=== PATIENT | female | born 1955 | race Caucasian/White ===

== ENCOUNTER 2017-07-23 22:44 | Observation (INO) | payer OTHER ==
[2017-07-23] MEDS ORDERED: MORPHINE SULFATE 4 MG INJ IV ONE (23:10)
[2017-07-23] MEDS ORDERED: Zofran 4 MG/2 ML VIAL IV ONE (23:10)
--- NOTE | 2017-07-23 23:15 | ERPHSYRPT ---
- History of Present Illness Time Seen by Provider: 07/23/17 23:12 Source: patient Physician History: 62-year-old white female arrives with complaint of sharp pain which is inferior to her left breast symptoms since last night patient states the pain is sharp worse with breathing. Patient has no nausea no vomiting no diarrhea. Past medical history patient denies she does state that she was told about a year ago by a doctor that her blood pressure was high but never followed up. Past surgical history includes hysterectomy Timing/Duration: yesterday Severity: moderate Modifying Factors: Improves With: other Associated Symptoms: chest pain, No nausea, No vomiting, No abdominal pain, No shortness of breath, No heartburn, No diaphoresis, No cough, No chills, No fever , No headaches, No loss of appetite, No malaise, No rash, No syncope, No seizure , No weakness Allergies/Adverse Reactions: No Known Drug Allergies Allergy (Verified 07/23/17 23:22) Home Medications: No Reportable Medications [No Reported Medications] 07/23/17 [History] - Review of Systems Constitutional: No Fever, No Chills Eyes: No Symptoms Ears, Nose, & Throat: No Symptoms Respiratory: No Cough, No Dyspnea Cardiac: Chest Pain (pain inferior to left breast sharp worse with breathing), No Edema, No Syncope Abdominal/Gastrointestinal: No Abdominal Pain, No Nausea, No Vomiting, No Diarrhea Genitourinary Symptoms: No Dysuria Musculoskeletal: No Back Pain, No Neck Pain Skin: No Rash Neurological: No Dizziness, No Focal Weakness, No Sensory Changes Psychological: No Symptoms Endocrine: No Symptoms All Other Systems: Reviewed and Negative - Past Surgical History Female Surgical History: Hysterectomy - Nursing Vital Signs Nursing Vital Signs: Initial Vital Signs Temperature 97.9 F 07/23/17 22:56 Pulse Rate 79 07/23/17 22:56 Blood Pressure 244/110 07/23/17 22:56 O2 Sat by Pulse Oximetry 99 07/23/17 22:56 Pain Scale Pain Intensity 0 - Physical Exam General Appearance: no apparent distress, alert Eye Exam: PERRL/EOMI, eyes nml inspection Ears, Nose, Throat Exam: normal ENT inspection, TMs normal, pharynx normal, moist mucous membranes Neck Exam: normal inspection, non-tender, supple, full range of motion Respiratory Exam: normal breath sounds, lungs clear, No respiratory distress Cardiovascular Exam: regular rate/rhythm, normal heart sounds, normal peripheral pulses Gastrointestinal/Abdomen Exam: soft, normal bowel sounds, No tenderness, No mass Back Exam: normal inspection, normal range of motion, No CVA tenderness, No vertebral tenderness Extremity Exam: normal inspection, normal range of motion, pelvis stable Neurologic Exam: alert, oriented x 3, cooperative, normal mood/affect, nml cerebellar function, nml station & gait, sensation nml, No motor deficits Skin Exam: normal color, warm, dry, No rash Lymphatic Exam: No adenopathy SpO2 Interpretation: normal - Course Nursing assessment & vital signs reviewed: Yes EKG Interpreted by Me: RATE (72 bpm), Other (EKG: Sinus rhythm, normal axis LXXII bpm left ventricular hypertrophy no acute ST or T wave changes noted) - Radiology Exams Chest X-ray Interpretation: Interpreted by me, Other (no acute disease process) - CT Exams Chest CT Interpretation: Tele-radiologist Report, Other (CTA chest: Impression 1. Tiny pulmonary embolism versus less likely artifact identified and a pulmonary arterial branch to the inferior left upper lobe. Suggest DVT ultrasound to assess clot burden. 2. Left pleural effusion with associated atelectasis) Ordered Tests: Active Orders 24 hr Category Date Time Status EKG-ER Only STAT Care 07/23/17 23:10 Active IV Insertion STAT Care 07/23/17 23:10 Active CHEST 1 VIEW (PORTABLE) Stat Exams 07/23/17 23:10 Taken CHEST WITH CONTRAST [CT] Stat Exams 07/24/17 00:03 Taken AMYLASE Stat Lab 07/23/17 23:15 Completed CBC W DIFF Stat Lab 07/23/17 23:15 Completed CMP Stat Lab 07/23/17 23:15 Completed D-DIMER QUANTITATION Stat Lab 07/23/17 23:15 Completed LIPASE Stat Lab 07/23/17 23:15 Completed PROTIME WITH INR Stat Lab 07/23/17 23:15 Completed PTT Stat Lab 07/23/17 23:15 Completed TROPONIN Q3H Lab 07/23/17 23:15 Completed TROPONIN Q3H Lab 07/24/17 02:45 Completed TROPONIN Q3H Lab 07/24/17 05:15 Ordered TROPONIN Q3H Lab 07/24/17 08:15 Ordered TROPONIN Q3H Lab 07/24/17 11:15 Ordered UA W/RFX UR CULTURE Stat Lab 07/23/17 22:55 Completed Medication Summary Generic Name Dose Route Start Last Admin Trade Name Shekharq PRN Reason Stop Dose Admin Enoxaparin Sodium 60 mg 07/24/17 03:30 07/24/17 03:34 Enoxaparin Sodium 1 mg/kg (60 mg) 08/23/17 03:29 60 mg SQ Administration Q12H JOSE Sodium Chloride 1,000 mls @ 50 mls/hr 07/23/17 23:45 07/23/17 23:54 Sodium Chloride 0.9% 1000 Ml IV 08/22/17 23:44 50 mls/hr .Q20H JOSE Administration Labetalol HCl 200 mg/ Sodium 190 mls @ 28.5 mls/hr 07/24/17 03:29 07/24/17 03 :34 Chloride IV 08/23/17 03:28 0.5 mg/min .Q6H40M PRN 28.5 mls/hr HYPERTENSION Administration 0.5 MG/MIN Discontinued Medications Generic Name Dose Route Start Last Admin Trade Name Joan PRN Reason Stop Dose Admin Aspirin 324 mg 07/24/17 00:02 07/24/17 00:09 Baby Aspirin 81 Mg Chew PO 07/24/17 00:03 324 mg STAT ONE Administration Labetalol HCl 10 mg 07/23/17 23:45 07/24/17 00:37 Trandate 20 Mg/5 Ml Syringe IV 07/23/17 23:46 10 mg STAT ONE Administration Labetalol HCl Confirm 07/23/17 23:49 Trandate 20 Mg/5 Ml Syringe Administered 07/23/17 23:50 Dose 20 mg IV .STK-MED ONE Labetalol HCl Confirm 07/24/17 00:36 Trandate 20 Mg/5 Ml Syringe Administered 07/24/17 00:37 Dose 20 mg IV .STK-MED ONE Labetalol HCl 10 mg 07/24/17 01:59 07/24/17 02:14 Trandate 20 Mg/5 Ml Syringe IV 07/24/17 02:00 10 mg STAT ONE Administration Labetalol HCl 10 mg 07/24/17 02:36 07/24/17 02:39 Trandate 20 Mg/5 Ml Syringe IV 07/24/17 02:37 10 mg STAT ONE Administration Labetalol HCl Confirm 07/24/17 02:38 Trandate 20 Mg/5 Ml Syringe Administered 07/24/17 02:39 Dose 20 mg IV .STK-MED ONE Morphine Sulfate 4 mg 07/23/17 23:10 07/23/17 23:30 Morphine Sulfate 4 Mg Inj IV 07/23/17 23:11 4 mg STAT ONE Administration Morphine Sulfate Confirm 07/23/17 23:29 Morphine Sulfate 4 Mg Inj Administered 07/23/17 23:30 Dose 4 mg .ROUTE .STK-MED ONE Ondansetron HCl 4 mg 07/23/17 23:10 07/23/17 23:31 Zofran 4 Mg/2 Ml Vial IV 07/23/17 23:11 4 mg STAT ONE Administration Ondansetron HCl Confirm 07/23/17 23:29 Zofran 4 Mg/2 Ml Vial Administered 07/23/17 23:30 Dose 4 mg .ROUTE .STK-MED ONE Lab/Rad Data: Laboratory Result Diagrams 07/23/17 23:15 07/23/17 23:15 Laboratory Results 07/24/17 07/23/17 07/23/17 Range/Units 02:45 23:15 23:15 WBC (4.0-10.5) K/mm3 RBC (4.1-5.4) M/mm3 Hgb (12.0-16.0) gm/dl Hct (35-47) % MCV (78-100) fl MCH (26-32) pg MCHC (32-36) g/dl RDW (11.5-14.0) % Plt Count (150-450) K/mm3 MPV (6-9.5) fl Gran % (36.0-66.0) % Eos # (Auto) (0-0.5) Lymphocytes % (24.0-44.0) % Monocytes % (0.0-12.0) % Eosinophils % (0.00-5.0) % Basophils % (0.0-0.4) % Absolute Granulocytes (1.4-6.9) Basophils # (0-0.4) INR 0.97 (0.8-3.0) APTT 26.9 (25.3-37.0) SECONDS D-Dimer 1032.60 H* (215-500) ng/mL Sodium (137-145) mmol/L Potassium (3.5-5.1) mmol/L Chloride (98-107) mmol/L Carbon Dioxide (22-30) mmol/L Anion Gap (5-15) MEQ/L BUN (7-17) mg/dL Creatinine (0.52-1.04) mg/dL Estimated GFR ML/MIN Glucose (74-106) mg/dL Calcium (8.4-10.2) mg/dL Total Bilirubin (0.2-1.3) mg/dL AST (14-36) U/L ALT (0-35) U/L Alkaline Phosphatase (38-126) U/L Troponin I < 0.012 < 0.012 (0.000-0.034) ng/mL Serum Total Protein (6.3-8.2) g/dL Albumin (3.5-5.0) g/dL Amylase (30-110) U/L Lipase (23-300) U/L Ur Collection Type Urine Color (YELLOW) Urine Appearance (CLEAR) Urine pH (5-6) Ur Specific [place] (1.005-1.025) Urine Protein (Negative) Urine Ketones (NEGATIVE) Urine Blood (0-5) Renaldo/ul Urine Nitrite (NEGATIVE) Urine Bilirubin (NEGATIVE) Urine Urobilinogen (0-1) mg/dL Ur Leukocyte Esterase (NEGATIVE) Urine Culture Reflexed (NO) Urine Glucose (NEGATIVE) mg/dL Specimen Received 07/23/17 07/23/17 07/23/17 Range/Units 23:15 23:15 22:55 WBC 7.7 (4.0-10.5) K/mm3 RBC 4.70 (4.1-5.4) M/mm3 Hgb 15.4 (12.0-16.0) gm/dl Hct 44.8 (35-47) % MCV 95.3 (78-100) fl MCH 32.8 H (26-32) pg MCHC 34.4 (32-36) g/dl RDW 13.0 (11.5-14.0) % Plt Count 174 (150-450) K/mm3 MPV 10.6 H (6-9.5) fl Gran % 55.0 (36.0-66.0) % Eos # (Auto) 0.15 (0-0.5) Lymphocytes % 32.2 (24.0-44.0) % Monocytes % 10.6 (0.0-12.0) % Eosinophils % 1.9 (0.00-5.0) % Basophils % 0.3 (0.0-0.4) % Absolute Granulocytes 4.24 (1.4-6.9) Basophils # 0.02 (0-0.4) INR (0.8-3.0) APTT (25.3-37.0) SECONDS D-Dimer (215-500) ng/mL Sodium 141 (137-145) mmol/L Potassium 3.5 (3.5-5.1) mmol/L Chloride 104 (98-107) mmol/L Carbon Dioxide 23 (22-30) mmol/L Anion Gap 17.2 H (5-15) MEQ/L BUN 10 (7-17) mg/dL Creatinine 0.73 (0.52-1.04) mg/dL Estimated GFR > 60 ML/MIN Glucose 100 (74-106) mg/dL Calcium 9.8 (8.4-10.2) mg/dL Total Bilirubin 1.10 (0.2-1.3) mg/dL AST 24 (14-36) U/L ALT 15 (0-35) U/L Alkaline Phosphatase 93 (38-126) U/L Troponin I (0.000-0.034) ng/mL Serum Total Protein 8.5 H (6.3-8.2) g/dL Albumin 4.7 (3.5-5.0) g/dL Amylase 69 (30-110) U/L Lipase 130 (23-300) U/L Ur Collection Type CLEAN CATCH Urine Color YELLOW (YELLOW) Urine Appearance CLEAR (CLEAR) Urine pH 5.0 (5-6) Ur Specific [place] 1.005 (1.005-1.025) Urine Protein NEGATIVE (Negative) Urine Ketones NEGATIVE (NEGATIVE) Urine Blood NEGATIVE (0-5) Renaldo/ul Urine Nitrite NEGATIVE (NEGATIVE) Urine Bilirubin NEGATIVE (NEGATIVE) Urine Urobilinogen NORMAL (0-1) mg/dL Ur Leukocyte Esterase NEGATIVE (NEGATIVE) Urine Culture Reflexed NO (NO) Urine Glucose NEGATIVE (NEGATIVE) mg/dL Specimen Received 07/23/17 1085 - Progress Progress: improved Progress Note: 07/23/17 23:47 Patient arrives with complaint of pain in her left chest inferior to her left breast sharp worse with breathing symptoms since last night. Patient with markedly elevated blood pressure. Patient did have a markedly elevated blood pressure of 238/96 and actually consideration was given to giving the patient labetalol 10 mg IV however patient with good response to her blood pressure with morphine 4 mg IV . patient was elevated d-dimer CT a of the chest is ordered. 07/24/17 02:47 patient's blood patient's blood pressure has a elevated and she has been given labetalol 10 mg increments for a total of 30 mg. Have ordered labetalol drip 0.5 mg/m to titrate to keep systolic blood pressure less than 190 systolic blood pressure less than 100. Patient does have a pulmonary embolism which is described as a tiny pulmonary embolism versus less likely artifact identified in the pulmonary arterial branch to the inferior left upper lobe Plan 1. Labetalol drip 2. Lovenox Call has been placed to Dr. Elizalde for possible admission 07/24/17 03:45 Patient's blood pressure is better with labetalol drip. Patient has been started on Lovenox. I've discussed the case with Dr. Elizalde will place patient on ICU ,continue labetalol drip, continue Lovenox provide morphine for pain . - Departure Time of Disposition: 03:46 Departure Disposition: In-patient Admission Clinical Impression: Hypertensive urgency Chest pain Qualifiers: Chest pain type: unspecified Qualified Code(s): R07.9 - Chest pain, unspecified Pulmonary embolism Qualifiers: Pulmonary embolism type: other Chronicity: acute Acute cor pulmonale presence: without acute cor pulmonale Qualified Code(s): I26.99 - Other pulmonary embolism without acute cor pulmonale Condition: Fair Critical Care Time: No Referrals: PASHA ELIZALDE MD [Primary Care Provider] -
[2017-07-23 23:22] LABS: BASOPHIL % 0.3 % (0.0-0.4); Basophil (Absolute #) 0.02 (0-0.4); Eosinophil % 1.9 % (0.00-5.0); Eosinophil (Absolute #) 0.15 (0-0.5); Granulocyte Absolute (ANC) 4.24 (1.4-6.9); Hematocrit 44.8 % (35-47); Hemoglobin 15.4 gm/dl (12.0-16.0); Lymphocyte (Absolute #) 2.48 (1.0-4.6); Lymphocytes % 32.2 % (24.0-44.0); Mean Cell Volume 95.3 fl (78-100); Mean Corpuscular Hemoglobin 32.8 pg (26-32); Mean Corpuscular Hgb Concent. 34.4 g/dl (32-36); Mean Platelet Volume 10.6 fl (6-9.5); Monocyte (Absolute #) 0.82 (0.0-1.3); Monocytes % 10.6 % (0.0-12.0); Platelet Count 174 K/mm3 (150-450); White Blood Count 7.7 K/mm3 (4.0-10.5)
[2017-07-23] MEDS ORDERED: MORPHINE SULFATE 4 MG INJ ONE (23:29)
[2017-07-23] MEDS ORDERED: Zofran 4 MG/2 ML VIAL ONE (23:29)
[2017-07-23 23:40] LABS: Appearance CLEAR (CLEAR); Bilirubin NEGATIVE (NEGATIVE); Blood NEGATIVE Ery/ul (0-5); Glucose NEGATIVE (NEGATIVE); Ketones NEGATIVE (NEGATIVE); Leukocyte Esterase NEGATIVE (NEGATIVE); Nitrite NEGATIVE (NEGATIVE); Protein,Urine Dip NEGATIVE (Negative); Specific Gravity 1.005 (1.005-1.025); Urobilinogen NORMAL mg/dL (0-1)
[2017-07-23] MEDS ORDERED: Sodium Chloride 0.9% 1000 ML 1,000 ML IV SCH (23:45)
[2017-07-23 23:48] LABS: INR 0.97 (0.8-3.0)
[2017-07-23] MEDS ORDERED: TRANDATE 20 MG/5 ML SYRINGE IV ONE (23:49)
[2017-07-23] MEDS ORDERED: Sodium Chloride 0.9% 1000 ML 1,000 ML ONE (23:49)
[2017-07-23 23:51] LABS: PTT 26.9 SECONDS (25.3-37.0)
[2017-07-23 23:53] LABS: ALBUMIN 4.7 g/dL (3.5-5.0); ALKALINE PHOSPHATASE 93 U/L (38-126); AMYLASE 69 U/L (30-110); ANION GAP 17.2 MEQ/L (5-15); BLOOD UREA NITROGEN 10 mg/dL (7-17); CHLORIDE 104 mmol/L (98-107); Calcium 9.8 mg/dL (8.4-10.2); Carbon Dioxide 23 mmol/L (22-30); Creatinine 1 0.73 mg/dL (0.52-1.04); Glucose 100 mg/dL (74-106); LIPASE 130 U/L (23-300); Potassium 3.5 mmol/L (3.5-5.1); SGOT/AST 24 U/L (14-36); SGPT/ALT 15 U/L (0-35); SODIUM 141 mmol/L (137-145); Total Protein 8.5 g/dL (6.3-8.2)
[2017-07-23 23:57] LABS: D-DIMER QUANTITATION 1032.6 ng/mL (215-500)
[2017-07-23] MEDS: TRANDATE 20 MG/5 ML SYRINGE IV ONE (23:58)
[2017-07-24] MEDS ORDERED: BABY ASPIRIN 81 MG CHEW PO ONE (00:02)
[2017-07-24] MEDS ORDERED: TRANDATE 20 MG/5 ML SYRINGE IV ONE ×4 (00:36→02:38)
[2017-07-24] MEDS: TRANDATE 20 MG/5 ML SYRINGE IV ONE (00:37)
[2017-07-24] MEDS ORDERED: TRANDATE 100 MG/20 ML MDV FOR DRIP*** 200 MG in Sodium Chloride 0.9% 150 ML 150 ML IV PRN (03:29)
[2017-07-24] MEDS ORDERED: ENOXAPARIN SODIUM SQ SCH ×3 (03:30→18:00)
[2017-07-24] MEDS ORDERED: ENOXAPARIN SODIUM SQ ONE (03:33)
[2017-07-24] MEDS ORDERED: Zofran 4 MG/2 ML VIAL IV PRN (04:15)
[2017-07-24] MEDS ORDERED: Sodium Chloride 0.9% 1000 ML 1,000 ML IV SCH (04:15)
[2017-07-24] MEDS ORDERED: MORPHINE SULFATE 4 MG INJ IV PRN (04:15)
--- NOTE | 2017-07-24 09:33 | XRAY ---
Indication: Chest pain. Elevated d-dimer. Multiple contiguous axial images obtained through the chest using 80 cc Isovue 370 contrast and PE protocol. Comparison: None There is good opacification of the pulmonary arteries to include the lobar and segmental branches. There is nonoccluding pulmonary embolus in the lingular branch. No other filling defect or pulmonary embolus. Heart is not enlarged. Aorta is normal in course and caliber. No pathologic mediastinal/hilar lymphadenopathy. Small hiatal hernia. Examination of the lung parenchyma demonstrates patchy left lower lobe and lingular airspace disease with lesser degree in the right lower lobe. Small left effusion. Right lower lobe calcified granuloma. Bony thorax intact with mild degenerative changes throughout the spine. Limited upper abdomen demonstrates fatty liver and calcified splenic granulomas. Impression: 1. Nonoccluding lingular pulmonary embolus. No distal pulmonary infarct. 2. Bilateral lower lobe and lingular airspace disease with small left effusion. 3. Incidental small hiatal hernia and evidence for old granulomatous disease. Comment: Preliminary interpretation was made by VR. No discrepancy. CT DI 10.00
--- NOTE | 2017-07-24 09:35 | XRAY ---
Indication: Left-sided chest pain. Comparison: None Portable chest demonstrates left base infiltrate/atelectasis/effusion and right mid lung calcified granuloma. Remaining lungs clear. Heart is not enlarged. Bony thorax intact with minimal scoliosis.
[2017-07-24] MEDS ORDERED: NORVASC 5 MG PO SCH (10:00)
[2017-07-24] MEDS ORDERED: Zestril 10 MG PO SCH (10:00)
[2017-07-24] MEDS ORDERED: ECOTRIN 81 MG PO SCH (10:00)
[2017-07-24 11:31] VITALS: BP 164/75; O2SAT 95
[2017-07-24 12:03] VITALS: PULSE 69
--- NOTE | 2017-07-24 13:10 | PCM.SSS ---
History of Present Illness - Chief Complaint Chief Complaint: Chest pain, HTN,PE History of Present Illness: is a 62 year old female.62-year-old white female arrives with complaint of sharp pain which is inferior to her left breast symptoms since last night patient states the pain is sharp worse with breathing. Patient has no nausea no vomiting no diarrhea. Past medical history patient denies she does state that she was told about a year ago by a doctor that her blood pressure was high but never followed up. Timing/Duration: yesterday Severity: moderate Modifying Factors: Improves With: other Associated Symptoms: chest pain, No nausea, No vomiting, No abdominal pain, No shortness of breath, No heartburn, No diaphoresis, No cough, No chills, No fever , No headaches, No loss of appetite, No malaise, No rash, No syncope, No seizure , No weakness - Review of Systems Constitutional: No Fever, No Chills Eyes: No Symptoms Ears, Nose, & Throat: No Symptoms Respiratory: No Cough, No Short Of Breath Cardiac: No Chest Pain, No Edema, No Syncope Abdominal/Gastrointestinal: No Abdominal Pain, No Nausea, No Vomiting, No Diarrhea Genitourinary Symptoms: No Dysuria Musculoskeletal: No Back Pain, No Neck Pain Skin: No Rash Neurological: No Dizziness, No Focal Weakness, No Sensory Changes Psychological: No Symptoms Endocrine: No Symptoms Hematologic/Lymphatic: No Symptoms Immunological/Allergic: No Symptoms Medications & Allergies Home Medications: Home Medication List Amlodipine Besylate 5 mg [Norvasc 5 mg] 2.5 mg PO HS #30 tablet 07/24/17 [ Rx] Aspirin EC 81 mg [Ecotrin 81 mg] 81 mg PO DAILY tablet.ec 07/24/17 [Rx] Lisinopril 10 mg [Zestril 10 MG] 10 mg PO DAILY 30 Days #30 tablet [Rx] Rivaroxaban 10 mg Tablet [Xarelto 10 mg Tablet] 15 mg PO BID #45 tablet [Rx] Allergies/Adverse Reactions: Allergies Allergy/AdvReac Type Severity Reaction Status Date / Time No Known Drug Allergies Allergy Verified 07/23/17 23:22 - Past Medical History Past Medical History: No - Female History Are you now?: No - Past Surgical History Past Surgical History: Yes Female Surgical History: Hysterectomy - Social History Smoking Status: Current every day smoker How long have you smoked: 35 years Exposure to second hand smoke: No Alcohol: Daily Drug Use: none - Physical Exam Vital Signs: Vital Signs - 24 hr Temp Pulse Resp BP Pulse Ox 07/24/17 12:00 69 17 07/24/17 11:30 64 17 164/75 95 07/24/17 10:51 70 21 165/95 96 07/24/17 07:17 71 18 07/24/17 07:00 61 20 135/68 91 L 07/24/17 06:00 97.7 F 87 20 115/62 93 L 07/24/17 05:15 66 24 133/64 92 L 07/24/17 04:33 97.9 F 69 19 169/84 93 L 07/24/17 04:15 91 L 07/24/17 02:01 74 18 212/104 98 07/23/17 23:52 78 16 168/98 95 07/23/17 23:35 80 27 H 238/94 97 07/23/17 22:56 97.9 F 79 244/110 99 General Appearance: no apparent distress, alert Neurologic Exam: alert, oriented x 3, cooperative, normal mood/affect, nml cerebellar function, nml station & gait, sensation nml, No motor deficits Eye Exam: PERRL/EOMI, eyes nml inspection Ears, Nose, Throat Exam: normal ENT inspection, TMs normal, pharynx normal, moist mucous membranes Neck Exam: normal inspection, non-tender, supple, full range of motion Respiratory Exam: normal breath sounds, lungs clear, No respiratory distress Cardiovascular Exam: regular rate/rhythm, normal heart sounds, normal peripheral pulses Gastrointestinal/Abdomen Exam: soft, normal bowel sounds, No tenderness, No mass Back Exam: normal inspection, normal range of motion, No CVA tenderness, No vertebral tenderness Extremity Exam: normal inspection, normal range of motion, pelvis stable Skin Exam: normal color, warm, dry, No rash Lymphatic Exam: No adenopathy Results - Labs Lab/Micro Results: Lab Results-Last 24 Hours 07/24/17 07/24/17 07/24/17 Range/Units 05:35 08:15 11:25 Troponin I < 0.012 < 0.012 < 0.012 (0.000-0.034) ng/mL - Other Procedures and Tests Respiratory Therapy 07/24/17 04:55 Smoking Cessation Education ONCE Assessment/Plan (1) Chest pain Current Visit: Yes Status: Acute Qualifiers: Chest pain type: unspecified Qualified Code(s): R07.9 - Chest pain, unspecified Code(s): R07.9 - CHEST PAIN, UNSPECIFIED (2) Hypertensive urgency Current Visit: Yes Status: Acute Code(s): I16.0 - HYPERTENSIVE URGENCY (3) Pulmonary embolism Current Visit: Yes Status: Acute Qualifiers: Pulmonary embolism type: other Chronicity: acute Acute cor pulmonale presence: without acute cor pulmonale Qualified Code(s): I26.99 - Other pulmonary embolism without acute cor pulmonale Code(s): I26.99 - OTHER PULMONARY EMBOLISM WITHOUT ACUTE COR PULMONALE Hospital Summary - Hospital Course Hospital Course: Chief Complaint Diagnosis Chest pain, HTN,PE Allergies Allergy/AdvReac Type Severity Reaction Status Date / Time No Known Drug Allergies Allergy Verified 07/23/17 23:22 Vital Signs (Last 24 hours) Temp Pulse Resp BP Pulse Ox 07/24/17 12:00 69 17 07/24/17 11:30 64 17 164/75 95 07/24/17 10:51 70 21 165/95 96 07/24/17 07:17 71 18 07/24/17 07:00 61 20 135/68 91 L 07/24/17 06:00 97.7 F 87 20 115/62 93 L 07/24/17 05:15 66 24 133/64 92 L 07/24/17 04:33 97.9 F 69 19 169/84 93 L 07/24/17 04:15 91 L 07/24/17 02:01 74 18 212/104 98 07/23/17 23:52 78 16 168/98 95 07/23/17 23:35 80 27 H 238/94 97 07/23/17 22:56 97.9 F 79 244/110 99 Home Medications Medication Instructions Recorded Confirmed Last Taken Type No Reportable Medications [No 07/23/17 07/23/17 Unknown History Reported Medications] Current Medications Generic Name Dose Route Start Last Admin Trade Name Freq PRN Reason Stop Dose Admin Amlodipine Besylate 2.5 mg 07/24/17 10:00 07/24/17 09:22 Norvasc 5 Mg PO 08/23/17 09:59 2.5 mg HS JOSE Administration Aspirin 81 mg 07/24/17 10:00 07/24/17 09:22 Ecotrin 81 Mg PO 08/23/17 09:59 81 mg DAILY JOSE Administration Enoxaparin Sodium 60 mg 07/24/17 18:00 Enoxaparin Sodium 1 mg/kg (60 mg) 08/23/17 17:59 SQ Q12H JOSE Sodium Chloride 1,000 mls @ 100 mls/hr 07/24/17 04:15 Sodium Chloride 0.9% 1000 Ml IV 08/23/17 04:14 .Q10H JOSE Lisinopril 10 mg 07/24/17 10:00 07/24/17 09:22 Zestril 10 Mg PO 08/23/17 09:59 10 mg DAILY JOSE Administration Morphine Sulfate 4 mg 07/24/17 04:15 Morphine Sulfate 4 Mg Inj IV 07/29/17 04:14 Q4H PRN PRN PAIN Non-Formulary Medication 1 each 07/24/17 13:11 Pharmacy Dosing Request 07/24/17 13:12 STAT ONE Ondansetron HCl 4 mg 07/24/17 04:15 Zofran 4 Mg/2 Ml Vial IV 08/23/17 04:14 Q6H PRN PRN NAUSEA/VOMITING Discontinued Medications Generic Name Dose Route Start Last Admin Trade Name Freq PRN Reason Stop Dose Admin Aspirin 324 mg 07/24/17 00:02 07/24/17 00:09 Baby Aspirin 81 Mg Chew PO 07/24/17 00:03 324 mg STAT ONE Administration Enoxaparin Sodium 60 mg 07/24/17 03:30 07/24/17 03:34 Enoxaparin Sodium 1 mg/kg (60 mg) 08/23/17 03:29 60 mg SQ Administration Q12H [facility] Enoxaparin Sodium Confirm 07/24/17 03:33 Enoxaparin Sodium Administered 07/24/17 03:34 Dose 80 mg SQ .STK-MED ONE Enoxaparin Sodium 60 mg 07/24/17 04:15 07/24/17 04:57 Enoxaparin Sodium 1 mg/kg (60 mg) 08/23/17 04:14 Not Given SQ Q12H JOSE Sodium Chloride 1,000 mls @ 50 mls/hr 07/23/17 23:45 07/23/17 23:54 Sodium Chloride 0.9% 1000 Ml IV 08/22/17 23:44 50 mls/hr .Q20H JOSE Administration Labetalol HCl 200 mg/ Sodium 190 mls @ 28.5 mls/hr 07/24/17 03:29 07/24/17 03 :34 Chloride IV 08/23/17 03:28 0.5 mg/min .Q6H40M PRN 28.5 mls/hr HYPERTENSION Administration 0.5 MG/MIN Sodium Chloride Confirm 07/23/17 23:49 Sodium Chloride 0.9% 1000 Ml Administered 07/23/17 23:50 Dose 1,000 mls @ ud .ROUTE .STK-MED ONE Labetalol HCl 10 mg 07/23/17 23:45 07/24/17 00:37 Trandate 20 Mg/5 Ml Syringe IV 07/23/17 23:46 10 mg STAT ONE Administration Labetalol HCl Confirm 07/23/17 23:49 Trandate 20 Mg/5 Ml Syringe Administered 07/23/17 23:50 Dose 20 mg IV .STK-MED ONE Labetalol HCl Confirm 07/24/17 00:36 Trandate 20 Mg/5 Ml Syringe Administered 07/24/17 00:37 Dose 20 mg IV .STK-MED ONE Labetalol HCl 10 mg 07/24/17 01:59 07/24/17 02:14 Trandate 20 Mg/5 Ml Syringe IV 07/24/17 02:00 10 mg STAT ONE Administration Labetalol HCl 10 mg 07/24/17 02:36 07/24/17 02:39 Trandate 20 Mg/5 Ml Syringe IV 07/24/17 02:37 10 mg STAT ONE Administration Labetalol HCl Confirm 07/24/17 02:38 Trandate 20 Mg/5 Ml Syringe Administered 07/24/17 02:39 Dose 20 mg IV .STK-MED ONE Morphine Sulfate 4 mg 07/23/17 23:10 07/23/17 23:30 Morphine Sulfate 4 Mg Inj IV 07/23/17 23:11 4 mg STAT ONE Administration Morphine Sulfate Confirm 07/23/17 23:29 Morphine Sulfate 4 Mg Inj Administered 07/23/17 23:30 Dose 4 mg .ROUTE .STK-MED ONE Ondansetron HCl 4 mg 07/23/17 23:10 07/23/17 23:31 Zofran 4 Mg/2 Ml Vial IV 07/23/17 23:11 4 mg STAT ONE Administration Ondansetron HCl Confirm 07/23/17 23:29 Zofran 4 Mg/2 Ml Vial Administered 07/23/17 23:30 Dose 4 mg .ROUTE .STK-MED ONE Intake & Output (Last 24 hours) 07/22/17 07/23/17 07/24/17 07/25/17 11:59 11:59 11:59 11:59 Intake Total 851 Balance 851 Weight 58.1 kg Laboratory Results (Last 24 hours) 07/24/17 07/24/17 07/24/17 11:25 08:15 05:35 WBC RBC Hgb Hct MCV MCH MCHC RDW Plt Count MPV Gran % Eos # (Auto) Lymphocytes % Monocytes % Eosinophils % Basophils % Absolute Granulocytes Basophils # INR APTT D-Dimer Sodium Potassium Chloride Carbon Dioxide Anion Gap BUN Creatinine Estimated GFR Glucose Calcium Total Bilirubin AST ALT Alkaline Phosphatase Troponin I < 0.012 < 0.012 < 0.012 Serum Total Protein Albumin Amylase Lipase Ur Collection Type Urine Color Urine Appearance Urine pH Ur Specific [place] Urine Protein Urine Ketones Urine Blood Urine Nitrite Urine Bilirubin Urine Urobilinogen Ur Leukocyte Esterase Urine Culture Reflexed Urine Glucose Specimen Received 07/24/17 07/23/17 07/23/17 02:45 23:15 23:15 WBC RBC Hgb Hct MCV MCH MCHC RDW Plt Count MPV Gran % Eos # (Auto) Lymphocytes % Monocytes % Eosinophils % Basophils % Absolute Granulocytes Basophils # INR 0.97 APTT 26.9 D-Dimer 1032.60 H* Sodium Potassium Chloride Carbon Dioxide Anion Gap BUN Creatinine Estimated GFR Glucose Calcium Total Bilirubin AST ALT Alkaline Phosphatase Troponin I < 0.012 < 0.012 Serum Total Protein Albumin Amylase Lipase Ur Collection Type Urine Color Urine Appearance Urine pH Ur Specific [place] Urine Protein Urine Ketones Urine Blood Urine Nitrite Urine Bilirubin Urine Urobilinogen Ur Leukocyte Esterase Urine Culture Reflexed Urine Glucose Specimen Received 07/23/17 07/23/17 07/23/17 23:15 23:15 22:55 WBC 7.7 RBC 4.70 Hgb 15.4 Hct 44.8 MCV 95.3 MCH 32.8 H MCHC 34.4 RDW 13.0 Plt Count 174 MPV 10.6 H Gran % 55.0 Eos # (Auto) 0.15 Lymphocytes % 32.2 Monocytes % 10.6 Eosinophils % 1.9 Basophils % 0.3 Absolute Granulocytes 4.24 Basophils # 0.02 INR APTT D-Dimer Sodium 141 Potassium 3.5 Chloride 104 Carbon Dioxide 23 Anion Gap 17.2 H BUN 10 Creatinine 0.73 Estimated GFR > 60 Glucose 100 Calcium 9.8 Total Bilirubin 1.10 AST 24 ALT 15 Alkaline Phosphatase 93 Troponin I Serum Total Protein 8.5 H Albumin 4.7 Amylase 69 Lipase 130 Ur Collection Type CLEAN CATCH Urine Color YELLOW Urine Appearance CLEAR Urine pH 5.0 Ur Specific [place] 1.005 Urine Protein NEGATIVE Urine Ketones NEGATIVE Urine Blood NEGATIVE Urine Nitrite NEGATIVE Urine Bilirubin NEGATIVE Urine Urobilinogen NORMAL Ur Leukocyte Esterase NEGATIVE Urine Culture Reflexed NO Urine Glucose NEGATIVE Specimen Received 07/23/17 2255 Orders (Last 24 hours) Category Date Time Status Bedrest with BRP/BSC ROUTINE Activity 07/24/17 04:15 Active Admit as Inpatient ROUTINE Care 07/24/17 04:15 Active Call Admit Doctor for Orders ON ADMISSION Care 07/24/17 04:15 Active Code Status Order ROUTINE Care 07/24/17 04:15 Active EKG-ER Only STAT Care 07/23/17 23:10 Completed IV Care Q6H Care 07/24/17 04:15 Active IV Insertion STAT Care 07/23/17 23:10 Completed Telemetry Q4H Care 07/24/17 04:15 Active Weight,Daily 0600 Care 07/24/17 04:15 Active Cardiac Diet Diet 07/24/17 Breakfast Active CHEST 1 VIEW (PORTABLE) Stat Exams 07/23/17 23:10 Completed CHEST WITH CONTRAST [CT] Stat Exams 07/24/17 00:03 Completed AMYLASE Stat Lab 07/23/17 23:15 Completed CBC W DIFF AM.LAB Lab 07/25/17 04:00 Ordered CBC W DIFF Stat Lab 07/23/17 23:15 Completed CMP AM.LAB Lab 07/25/17 04:00 Ordered CMP Stat Lab 07/23/17 23:15 Completed D-DIMER QUANTITATION Stat Lab 07/23/17 23:15 Completed LIPASE Stat Lab 07/23/17 23:15 Completed PROTIME WITH INR Stat Lab 07/23/17 23:15 Completed PTT Stat Lab 07/23/17 23:15 Completed TROPONIN Q3H Lab 07/23/17 23:15 Completed TROPONIN Q3H Lab 07/24/17 02:45 Completed TROPONIN Q3H Lab 07/24/17 05:35 Completed TROPONIN Q3H Lab 07/24/17 08:15 Completed TROPONIN Q3H Lab 07/24/17 11:25 Completed UA W/RFX UR CULTURE Stat Lab 07/23/17 22:55 Completed Amlodipine Besylate 5 mg [Norvasc 5 mg] Med 07/24/17 10:00 Active 2.5 mg PO HS Aspirin 81 gm Chew [Baby Aspirin 81 mg Chew] Med 07/24/17 00:02 Discontinued 324 mg PO STAT ONE Aspirin EC 81 mg [Ecotrin 81 mg] Med 07/24/17 10:00 Active 81 mg PO DAILY Enoxaparin Sodium [Enoxaparin Sodium] Med 07/24/17 03:30 Discontinued 60 mg SQ Q12H Enoxaparin Sodium [Enoxaparin Sodium] Med 07/24/17 04:15 Discontinued 60 mg SQ Q12H Enoxaparin Sodium [Enoxaparin Sodium] Med 07/24/17 18:00 Active 60 mg SQ Q12H Labetalol HCl 20 mg/4 ml [Trandate 20 mg/5 ml Med 07/23/17 23:45 Discontinued Syringe] 10 mg IV STAT ONE Labetalol HCl 20 mg/4 ml [Trandate 20 mg/5 ml Med 07/24/17 01:59 Discontinued Syringe] 10 mg IV STAT ONE Labetalol HCl 20 mg/4 ml [Trandate 20 mg/5 ml Med 07/24/17 02:36 Discontinued Syringe] 10 mg IV STAT ONE Labetalol HCl 20 mg/4 ml [Trandate 20 mg/5 ml Med 07/23/17 23:49 Discontinued Syringe] 20 mg IV .STK-MED ONE Labetalol HCl 20 mg/4 ml [Trandate 20 mg/5 ml Med 07/24/17 00:36 Discontinued Syringe] 20 mg IV .STK-MED ONE Labetalol HCl 20 mg/4 ml [Trandate 20 mg/5 ml Med 07/24/17 02:38 Discontinued Syringe] 20 mg IV .STK-MED ONE Lisinopril 10 mg [Zestril 10 MG] Med 07/24/17 10:00 Active 10 mg PO DAILY Morphine Sulfate 4 mg Inj Med 07/23/17 23:29 Discontinued 4 mg .ROUTE .STK-MED ONE Morphine Sulfate 4 mg Inj Med 07/24/17 04:15 Active 4 mg IV Q4H PRN PRN Morphine Sulfate 4 mg Inj Med 07/23/17 23:10 Discontinued 4 mg IV STAT ONE NaCl 0.9% 1000 ml [Sodium Chloride 0.9% 1000 ML] 1,000 Med 07/24/17 04:15 Active ml IV 100 mls/hr NaCl 0.9% 1000 ml [Sodium Chloride 0.9% 1000 ML] 1,000 Med 07/23/17 23:45 Discontinued ml IV 50 mls/hr NaCl 0.9% 150 ml [Sodium Chloride 0.9% 150 ML] 150 ml Med 07/24/17 03:29 Discontinued Labetalol HCl 100 mg Mdv [Trandate 100 mg/20 ml Mdv For Drip] 200 mg IV 0.5 mg/min Ondansetron HCl 4 mg/2 ml [Zofran 4 MG/2 ML VIAL] Med 07/23/17 23:29 Discontinued 4 mg .ROUTE .STK-MED ONE Ondansetron HCl 4 mg/2 ml [Zofran 4 MG/2 ML VIAL] Med 07/24/17 04:15 Active 4 mg IV Q6H PRN PRN Ondansetron HCl 4 mg/2 ml [Zofran 4 MG/2 ML VIAL] Med 07/23/17 23:10 Discontinued 4 mg IV STAT ONE Pharmacy Dosing Request Med 07/24/17 13:11 Once 1 each STAT ONE Pulse Oximetry CONTINUOUS RT 07/24/17 04:15 Active Smoking Cessation Education ONCE RT 07/24/17 04:55 Active Transfer Order Routine Transfer 07/24/17 Completed Patient Care Notes (Last 24 hours) 07/24/17 10:52 Nursing Note by Reema Scott vital signs post ambulation Initialized on 07/24/17 10:52 - END OF NOTE 07/24/17 10:51 Nursing Note by Reema Scott ambulated in halls around the unit. tolerated well. Initialized on 07/24/17 10:51 - END OF NOTE 07/24/17 09:47 Nursing Note by Reema Scott assisted to bathroom, voided without difficulty Initialized on 07/24/17 09:47 - END OF NOTE - Vitals & Intake/Output Vital Signs: Vital Signs Temperature 97.7 F 07/24/17 06:00 Pulse Rate 69 07/24/17 12:00 Respiratory Rate 17 07/24/17 12:00 Blood Pressure 164/75 07/24/17 11:30 O2 Sat by Pulse Oximetry 95 07/24/17 11:30 Intake & Output: Intake & Output 07/22/17 07/23/17 07/24/17 07/25/17 11:59 11:59 11:59 11:59 Intake Total 851 Balance 851 Weight 58.1 kg - Lab Result Diagrams: 07/23/17 23:15 07/23/17 23:15 Lab Results-Last 24 Hrs: Lab Results-Last 24 Hours 07/24/17 07/24/17 07/24/17 Range/Units 05:35 08:15 11:25 Troponin I < 0.012 < 0.012 < 0.012 (0.000-0.034) ng/mL - Procedures and Test Procedures and Tests throughout Hospitalization: Therapy Orders & Screens 07/24/17 04:55 Smoking Cessation Education ONCE Comment: Diagnosis: Chest pain, HTN,PE Smoking Status: Current every day smoker How long have you smoked: 35 years Have you smoked in the past 12 months: Yes Approximately how many cigarettes per day: 1/2 pk Do you dip or chew tobacco: No - Discharge Discharge Date: 07/24/17 Disposition: Home, Self-Care Condition: Stable Prescriptions: New Aspirin EC 81 mg [Ecotrin 81 mg] 81 mg PO DAILY tablet.ec Amlodipine Besylate 5 mg [Norvasc 5 mg] 2.5 mg PO HS #30 tablet Rivaroxaban 10 mg Tablet [Xarelto 10 mg Tablet] 15 mg PO BID #45 tablet Lisinopril 10 mg [Zestril 10 MG] 10 mg PO DAILY 30 Days #30 tablet Instructions: High Blood Pressure in Adults, Heart Healthy Diet, Rivaroxaban, Amlodipine, Aspirin, Lisinopril Follow up with: PASHA ELIZALDE MD [Primary Care Provider] - 07/31/17 1:45 pm Forms: Discharge Instructions, Patient Portal Information
[2017-07-24] MEDS ORDERED: PHARMACY DOSING REQUEST MC ONE (13:11)
[2017-07-24] MEDS ORDERED: XARELTO 10 MG TABLET PO SCH (17:00)
== END 2017-07-24 14:15 | disposition home or self-care (01) ==
LOC: ED 22:44 → INTOOBSV 07-24 04:08 → ICU 07-24 04:08
PROVIDERS: ADMIT General Practice; ATTEND General Practice
DX: R07.9 Chest pain, unspecified (principal); I16.0 Hypertensive urgency; I26.99 Other pulmonary embolism without acute cor pulmonale
CPT/HCPCS: 36000; 36415; 71045; 71260; 80053; 81002; 82150; 83690; 84484; 85025; 85379; 85610; 85730; 93005; 93268; 96360; 96361; 96365; 96372; 96374; 96375; 99285; G0378; J1650; J2270; J2405; A9270-GY

== ENCOUNTER 2019-05-13 21:39 | Emergency (ER) | payer OTHER ==
[2019-05-13 21:51] VITALS: O2SAT 98
[2019-05-13] MEDS ORDERED: BENADRYL 25 MG CAPSULE PO ONE (22:29)
--- NOTE | 2019-05-13 22:29 | ERPHSYRPT ---
- History of Present Illness Time Seen by Provider: 05/13/19 22:15 Source: patient, family Exam Limitations: no limitations Patient Subjective Stated Complaint: pt states her tongue has been swollen since this am after taking her meds, pt took lisinopril this am along with her other medications. Triage Nursing Assessment: pt states she has no pain but tongue is swollen, pt states she does not hace trouble swallowing or breathing at this time. Physician History: 64 y/o white female with h/o htn on lisinopril for approx 2 years presents with swelling of her tongue on the right. first time this has happened. no stridor or soa. pt took one 25 mg benadryl. Timing/Duration: abrupt onset, this evening Severity: mild ENT Location: mouth (right tongue) Prearrival Treatment: over the counter meds (25mg benadryl) Allergies/Adverse Reactions: No Known Drug Allergies Allergy (Verified 07/23/17 23:22) Home Medications: lisinopriL [Lisinopril] 10 mg PO DAILY 05/13/19 [History] Hx Influenza Vaccination/Date Given: No - Review of Systems Constitutional: No Symptoms Eyes: No Symptoms Ears, Nose, & Throat: Other (right side tongue swelling) Respiratory: No Symptoms Cardiac: No Symptoms Abdominal/Gastrointestinal: No Symptoms Genitourinary Symptoms: No Symptoms Musculoskeletal: No Symptoms Skin: No Symptoms Neurological: No Symptoms Psychological: No Symptoms Endocrine: No Symptoms Hematologic/Lymphatic: No Symptoms Immunological/Allergic: No Symptoms All Other Systems: Reviewed and Negative - Past Medical History Pertinent Past Medical History: Yes Neurological History: No Pertinent History ENT History: No Pertinent History Cardiac History: Hypertension Respiratory History: No Pertinent History Endocrine Medical History: No Pertinent History Musculoskeletal History: No Pertinent History GI Medical History: No Pertinent History History: No Pertinent History Psycho-Social History: No Pertinent History Female Reproductive Disorders: No Pertinent History Other Medical History: hypertension, blood clot in lung - Past Surgical History Past Surgical History: Yes Neuro Surgical History: No Pertinent History Cardiac: No Pertinent History Respiratory: No Pertinent History Gastrointestinal: No Pertinent History Genitourinary: No Pertinent History Musculoskeletal: No Pertinent History Female Surgical History: Hysterectomy - Social History Smoking Status: Current every day smoker How long have you smoked: 35 years Exposure to second hand smoke: No Drug Use: none Patient Lives Alone: No - Nursing Vital Signs Nursing Vital Signs: Initial Vital Signs Temperature 97.4 F 05/13/19 21:45 Pulse Rate 80 05/13/19 21:45 Respiratory Rate 18 05/13/19 21:45 Blood Pressure 190/92 05/13/19 21:45 O2 Sat by Pulse Oximetry 98 05/13/19 21:45 Pain Scale Pain Intensity 0 - Physical Exam General Appearance: no apparent distress, alert, anxiety Eye Exam: bilateral eye: normal inspection, PERRL, EOMI Ear Exam: bilateral ear: auricle normal, canal normal, TM normal Nasal Exam: normal inspection Throat Exam: normal, pharynx normal, moist mucus membranes, tongue swollen ( right side with edema) Neck Exam: normal inspection, non-tender, supple, full range of motion, trachea midline Cardiovascular/Respiratory Exam: chest non-tender, no respiratory distress Abdominal Exam: non-tender Neurologic Exam: alert, oriented x 3, cooperative, 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 Skin Exam: normal color, warm, dry SpO2 Interpretation: normal SpO2: 98 O2 Delivery: Room Air - Course Nursing assessment & vital signs reviewed: Yes Ordered Tests: Medication Summary Discontinued Medications Generic Name Dose Route Start Last Admin Trade Name Joan PRN Reason Stop Dose Admin Clonidine 0.1 mg 05/13/19 22:31 05/13/19 22:38 Catapres 0.1 Mg PO 05/13/19 22:32 0.1 mg STAT ONE Administration Clonidine Confirm 05/13/19 22:33 Catapres 0.1 Mg Administered 05/13/19 22:34 Dose 0.1 mg .ROUTE .STK-MED ONE Clonidine 0.1 mg 05/13/19 22:59 05/13/19 23:02 Catapres 0.1 Mg PO 05/13/19 23:00 0.1 mg STAT ONE Administration Clonidine Confirm 05/13/19 23:01 Catapres 0.1 Mg Administered 05/13/19 23:02 Dose 0.1 mg .ROUTE .STK-MED ONE Diphenhydramine HCl 25 mg 05/13/19 22:29 05/13/19 22:38 Benadryl 25 Mg Capsule PO 05/13/19 22:30 25 mg STAT ONE Administration Diphenhydramine HCl Confirm 01/10/20 22:33 Benadryl 25 Mg Capsule Administered 05/13/19 22:34 Dose 25 mg .ROUTE .STK-MED ONE Famotidine 40 mg 05/13/19 22:30 05/13/19 22:38 Pepcid 20 Mg PO 05/13/19 22:31 40 mg STAT ONE Administration Famotidine Confirm 05/13/19 22:33 Pepcid 20 Mg Administered 05/13/19 22:34 Dose 40 mg .ROUTE .STK-MED ONE Methylprednisolone Sodium Succinate 125 mg 05/13/19 22:30 05/13/19 22:38 Solu-Medrol 125 Mg IM 05/13/19 22:31 125 mg STAT ONE Administration Methylprednisolone Sodium Succinate Confirm 05/13/19 22:33 Solu-Medrol 125 Mg Administered 05/13/19 22:34 Dose 125 mg .ROUTE .STK-MED ONE - Progress Progress: improved Progress Note: 05/13/19 23:30 swelling of right side tongue improved. htn improved. Counseled pt/family regarding: diagnosis, need for follow-up - Departure Departure Disposition: Home Clinical Impression: Angioedema, HTN (hypertension) Condition: Stable Critical Care Time: No Referrals: PASHA ELIZALDE MD [Primary Care Provider] - Additional Instructions: call your primary doctor on thursday05/16/2019 to arrange follow up appointment. hold lisinopril over the weekend and monitor and keep a two times daily log to discuss with primary doctor. continue over the counter benadryl 50mg orally every 8 hours for 4 days. Prescriptions: Famotidine 20 mg [Pepcid 20 MG] 20 mg PO BID #10 tablet Prednisone 10 mg [Deltasone 10 mg] 10 mg PO TID #12 tablet
[2019-05-13] MEDS ORDERED: Pepcid 20 MG PO ONE (22:30)
[2019-05-13] MEDS ORDERED: solu-MEDROL 125 MG IM ONE ×2 (22:30→23:55)
[2019-05-13] MEDS ORDERED: Catapres 0.1 MG PO ONE ×2 (22:31→22:59)
[2019-05-13] MEDS ORDERED: Pepcid 20 MG ONE (22:33)
[2019-05-13] MEDS ORDERED: solu-MEDROL 125 MG ONE (22:33)
[2019-05-13] MEDS ORDERED: BENADRYL 25 MG CAPSULE ONE (22:33)
[2019-05-13] MEDS ORDERED: Catapres 0.1 MG ONE ×2 (22:33→23:01)
[2019-05-14] MEDS ORDERED: solu-MEDROL 125 MG ONE
[2019-05-14 00:13] VITALS: BP 166/82; PULSE 67
== END 2019-05-14 00:14 | disposition home or self-care (01) ==
LOC: ED 21:39
DX: T78.3XXA Angioneurotic edema, initial encounter (principal); I10 Essential (primary) hypertension
CPT/HCPCS: 96372; 99284; J2930; A9270-GY

== ENCOUNTER 2019-05-16 20:14 | Emergency (ER) | payer OTHER ==
[2019-05-16 20:33] VITALS: O2SAT 98
[2019-05-16] MEDS ORDERED: BENADRYL 50 MG/ML IV ONE (20:37)
[2019-05-16] MEDS ORDERED: DECADRON 10MG INJ. IV ONE (20:37)
[2019-05-16] MEDS ORDERED: Sodium Chloride 0.9% 1000 ML 1,000 ML IV STA (20:38)
[2019-05-16] MEDS ORDERED: Pepcid 20 MG VIAL IV ONE ×2 (20:38→20:44)
--- NOTE | 2019-05-16 20:41 | ERPHSYRPT ---
- History of Present Illness Time Seen by Provider: 05/16/19 20:35 Source: patient Exam Limitations: no limitations Patient Subjective Stated Complaint: pt states she was here on thursday for tongue swelling. states swelling went away but now she has swelling in her upper lip. pt reports scratchiness in her throat. denies difficulty swallowing or breathing Triage Nursing Assessment: pt alert and oriented, answers questions approp. pt ambulatory with steady gait noted. respirations nonlabored with lungs cta. skin pink warm and dry. swelling noted to upper lip. pt denies pain Physician History: the patient began to have swelling to her upper lip 3 and half hours ago. She took her prednisone and Benadryl without complete resolution to the area. Patient had similar symptoms with swelling to her tongue 3 days ago, which may have been due to her lisinopril, which she has stopped taking. Patient saw her physician today, but no allergy testing has been set up to evaluate her symptoms. Timing/Duration: hour(s) (3.5) Severity: moderate Modifying Factors: Worsens With: nothing Associated Symptoms: No nausea, No vomiting, No abdominal pain, No shortness of breath, No heartburn, No diaphoresis, No cough, No chills, No chest pain, No fever, No headaches, No loss of appetite, No malaise, No rash, No syncope, No seizure, No weakness Allergies/Adverse Reactions: lisinopril Adverse Reaction (Verified 05/16/19 20:34) Swelling Home Medications: Metoprolol Tartrate 50 mg [Lopressor 50 MG] 50 mg PO BID 05/16/19 [History ] Hx Tetanus, Diphtheria Vaccination/Date Given: Yes Hx Influenza Vaccination/Date Given: No Hx Pneumococcal Vaccination/Date Given: No Immunizations Up to Date: Yes - Review of Systems Constitutional: No Fever, No Chills, No Lethargy, No Malaise Eyes: No Eye Pain, No Eye Redness, No Photophobia Ears, Nose, & Throat: No Ear Pain, No Nose Discharge, No Epistaxis, No Mouth Pain, No Throat Pain, No Throat Swelling, No Painful Swallowing Respiratory: No Cough, No Dyspnea, No Stridor, No Wheezing Cardiac: No Chest Pain, No Edema, No Syncope Abdominal/Gastrointestinal: No Abdominal Pain, No Nausea, No Vomiting, No Diarrhea Genitourinary Symptoms: No Dysuria Musculoskeletal: No Back Pain, No Neck Pain Skin: No Pruritis, No Rash Neurological: No Dizziness, No Focal Weakness, No Headache, No Sensory Changes Psychological: No Anxiety Endocrine: No Excessive Sweating Hematologic/Lymphatic: No Easy Bleeding, No Easy Bruising All Other Systems: Reviewed and Negative - Past Medical History Pertinent Past Medical History: Yes Neurological History: No Pertinent History ENT History: No Pertinent History Cardiac History: Hypertension Respiratory History: No Pertinent History Endocrine Medical History: No Pertinent History Musculoskeletal History: No Pertinent History GI Medical History: No Pertinent History History: No Pertinent History Psycho-Social History: No Pertinent History Female Reproductive Disorders: No Pertinent History Other Medical History: hypertension, blood clot in lung - Past Surgical History Past Surgical History: Yes Neuro Surgical History: No Pertinent History Cardiac: No Pertinent History Respiratory: No Pertinent History Gastrointestinal: No Pertinent History Genitourinary: No Pertinent History Musculoskeletal: No Pertinent History Female Surgical History: Hysterectomy - Social History Smoking Status: Current every day smoker How long have you smoked: 35 years Exposure to second hand smoke: No Drug Use: none Patient Lives Alone: No - Nursing Vital Signs Nursing Vital Signs: Initial Vital Signs Temperature 98.7 F 05/16/19 20:23 Pulse Rate 70 05/16/19 20:23 Respiratory Rate 18 05/16/19 20:23 Blood Pressure 200/100 05/16/19 20:23 O2 Sat by Pulse Oximetry 98 05/16/19 20:23 Pain Scale Pain Intensity 0 - Physical Exam General Appearance: no apparent distress, alert Eye Exam: PERRL/EOMI, eyes nml inspection Ears, Nose, Throat Exam: normal ENT inspection, TMs normal, pharynx normal, moist mucous membranes, other (positive swelling to the upper lip consistent with angioedema), No dry mucous membranes, No pharyngeal erythema Neck Exam: normal inspection, non-tender, supple, full range of motion, No Brudzinski, No Kernig's, No lymphadenopathy Respiratory Exam: normal breath sounds, lungs clear, airway intact, No respiratory distress, No diminished breath sounds, No crackles/rales, No rhonchi , No wheezing, No stridor Cardiovascular Exam: regular rate/rhythm, normal heart sounds, normal peripheral pulses, capillary refill <2 sec Gastrointestinal/Abdomen Exam: soft, normal bowel sounds, No tenderness, No mass Back Exam: normal inspection, normal range of motion, No CVA tenderness, No vertebral tenderness Extremity Exam: normal inspection, normal range of motion, pelvis stable Neurologic Exam: alert, oriented x 3, cooperative, 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 IV 05/16/19 20:38 10 mg STAT ONE Administration Dexamethasone Sodium Phosphate Confirm 05/16/19 20:44 Decadron 10mg Inj. Administered 05/16/19 20:45 Dose 10 mg .ROUTE .STK-MED ONE Diphenhydramine HCl 50 mg 05/16/19 20:37 05/16/19 20:54 Benadryl 50 Mg/Ml IV 05/16/19 20:38 50 mg STAT ONE Administration Diphenhydramine HCl Confirm 05/16/19 20:44 Benadryl 50 Mg/Ml Administered 05/16/19 20:45 Dose 50 mg .ROUTE .STK-MED ONE Famotidine 40 mg 05/16/19 20:38 05/16/19 20:54 Pepcid 20 Mg Vial IV 05/16/19 20:39 40 mg STAT ONE Administration Famotidine Confirm 05/16/19 20:44 Pepcid 20 Mg Vial Administered 05/16/19 20:45 Dose 20 mg IV .STK-MED ONE Sodium Chloride 1,000 mls @ 999 mls/hr 05/16/19 20:38 05/16/19 21:54 Sodium Chloride 0.9% 1000 Ml IV 05/16/19 21:38 Infused .Q1H1M STA Infusion Sodium Chloride Confirm 05/16/19 20:44 Sodium Chloride 0.9% 1000 Ml Administered 05/16/19 20:45 Dose 1,000 mls @ ud .ROUTE .STK-MED ONE - Progress Progress: improved Progress Note: 05/16/19 22:43 the patient has had decreased swelling to her upper lip but angioedema still present. Patient no swelling to the tongue, posterior oropharynx is patent with no edema, and no stridor, wheezing or urticaria appreciated on examination and patient remained hemodynamically in good condition her entire time in the emergency department. Patient can be discharged home and follow up as an outpatient as she does have medication at home and I did send an EpiPen to her pharmacy. Counseled pt/family regarding: diagnosis, need for follow-up - Departure Departure Disposition: Home Clinical Impression: Angioedema of lips Qualifiers: Encounter type: initial encounter Qualified Code(s): T78.3XXA - Angioneurotic edema, initial encounter HTN (hypertension) Qualifiers: Hypertension type: essential hypertension Qualified Code(s): I10 - Essential ( primary) hypertension Condition: Good Critical Care Time: No Referrals: PASHA ELIZALDE MD [Primary Care Provider] - 05/17/19 Instructions: Angioedema (DC), High Blood Pressure (DC) Additional Instructions: Discharge/Care Plan MARLENA LONDON was seen on 05/16/19 in the Emergency Room. The patient was counseled regarding Diagnosis,Lab results, Imaging studies, need for follow up and when to return to the Emergency Room. Return immediately back to return if any swelling to the face, tongue, throat, new skin rashes, difficulty breathing, dizziness, feeling faint, or any syncopal episodes or any other concerning signs or symptoms that were not present at this emergency room visit for immediate reevaluation in the emergency department. Prescriptions given: Epipen Discharge Note I have spoken with the patient and family. I have explained the patient's condition, diagnosis and treatment plan based on the information available to me at this time. I have answered the patient's and family's questions and addressed any concerns. The patient and family have as good understanding of the patient's diagnosis, condition and treatment plan as can be expected at this point. The vital signs have been stable. The patient's condition is stable and appropriate for discharge from the emergency department. The patient will pursue further outpatient evaluation with the primary care physician or other designated or consulting physician as outlined in the discharge instructions. The patient and family have received these instruction. The patient and family are aware that any significant change in condition or worsening of symptoms should prompt an immediate return to this or the closest emergency department or call 911. Prescriptions: EPINEPHrine [Epipen 0.3 MG] 0.3 mg IM DAILY PRN PRN #1 pack PRN Reason: Allergies
[2019-05-16] MEDS ORDERED: DECADRON 10MG INJ. ONE (20:44)
[2019-05-16] MEDS ORDERED: Sodium Chloride 0.9% 1000 ML 1,000 ML ONE (20:44)
[2019-05-16] MEDS ORDERED: BENADRYL 50 MG/ML ONE (20:44)
[2019-05-16 23:03] VITALS: BP 174/96; PULSE 60
== END 2019-05-16 23:01 | disposition home or self-care (01) ==
LOC: ED 20:14
DX: T78.3XXA Angioneurotic edema, initial encounter (principal); I10 Essential (primary) hypertension
CPT/HCPCS: 36000; 96374; 96375; 99284; J1100; J1200

== ENCOUNTER 2019-05-22 15:45 | Observation (INO) | payer OTHER ==
--- NOTE | 2019-05-22 17:16 | ERPHSYRPT ---
- History of Present Illness Time Seen by Provider: 05/22/19 17:02 Source: patient Exam Limitations: no limitations Patient Subjective Stated Complaint: Pt states that her blood pressure was 205/ 95 approx 30 minutes ago, pt had been taken off of Lisinopril this past week due to a possible allergic reaction with a swollen tongue, placed her on Metoprolol and she had hives the next day and so she was told to stop that one, she goes to the [employer] [facility] on , she does take Amlodipine still Triage Nursing Assessment: Pt brought into the ER by her , hypertensive, pulses normal, lungs clear, no edema, rates headache pain as 3/10, doesn't appear to be in any distress Physician History: about 90 minutes ago pt recorded a bp of 205/95. pt also c/o a left sided headache for the past 2 hours. 9 days ago pt had a swollen tongue and was taken off her lisinopirl. pt's erupted in hives 5 days ago. pt denies chest pain, shortness of air, fever. Allergies/Adverse Reactions: lisinopril Adverse Reaction (Verified 05/22/19 15:57) Swelling Hx Tetanus, Diphtheria Vaccination/Date Given: Yes Hx Influenza Vaccination/Date Given: No Hx Pneumococcal Vaccination/Date Given: No - Review of Systems Respiratory: No Dyspnea Cardiac: No Chest Pain Skin: Rash Neurological: Headache All Other Systems: Reviewed and Negative - Past Medical History Pertinent Past Medical History: Yes Neurological History: No Pertinent History ENT History: No Pertinent History Cardiac History: Hypertension Respiratory History: No Pertinent History Endocrine Medical History: No Pertinent History Musculoskeletal History: No Pertinent History GI Medical History: No Pertinent History History: No Pertinent History Psycho-Social History: No Pertinent History Female Reproductive Disorders: No Pertinent History Other Medical History: hypertension, blood clot in lung - Past Surgical History Past Surgical History: Yes Neuro Surgical History: No Pertinent History Cardiac: No Pertinent History Respiratory: No Pertinent History Gastrointestinal: No Pertinent History Genitourinary: No Pertinent History Musculoskeletal: No Pertinent History Female Surgical History: Hysterectomy - Social History Smoking Status: Current every day smoker How long have you smoked: 35 years Exposure to second hand smoke: Yes Drug Use: none Patient Lives Alone: No - Female History Hx Now: No - Nursing Vital Signs Nursing Vital Signs: Initial Vital Signs Temperature 98.1 F 05/22/19 15:49 Pulse Rate 73 05/22/19 15:49 Respiratory Rate 19 05/22/19 15:49 Blood Pressure 191/82 05/22/19 15:49 O2 Sat by Pulse Oximetry 99 05/22/19 15:49 Pain Scale Pain Intensity 0 - Physical Exam General Appearance: alert Eye Exam: PERRL/EOMI Ears, Nose, Throat Exam: pharynx normal Neck Exam: normal inspection Respiratory Exam: normal breath sounds Cardiovascular Exam: normal heart sounds Gastrointestinal/Abdomen Exam: soft, normal bowel sounds Back Exam: normal range of motion Extremity Exam: No pedal edema Neurologic Exam: alert, cooperative Skin Exam: rash (faint scattered erythematous rash) SpO2 Interpretation: normal SpO2: 99 O2 Delivery: Room Air - Course Nursing assessment & vital signs reviewed: Yes EKG Interpreted by Me: RATE (60), Sinus Rhythm, NORMAL AXIS, NORMAL INTERVALS - Radiology Exams Chest X-ray Interpretation: Interpreted by me, No Pneumonia - CT Exams Head CT Interpretation: Discussed w/radiologist (NO ACUTE INFARCT. NO HEMORRHAGE. NO CEREBRAL EDEMA. PARANASAL SINUS DISEASE MOST PRONOUNCED IN THE FRONTAL SINUSES BILATERALLY.) Ordered Tests: Active Orders 24 hr Category Date Time Status Rn Registry STAT Care 05/22/19 20:07 Active EKG-ER Only STAT Care 05/22/19 20:06 Active IV Insertion STAT Care 05/22/19 20:06 Active CHEST 2 VIEWS (PA AND LAT) Stat Exams 05/22/19 20:08 Taken HEAD WITHOUT CONTRAST [CT] Stat Exams 05/22/19 17:17 Completed BMP Stat Lab 05/22/19 18:07 Completed CBC W DIFF Stat Lab 05/22/19 18:07 Completed MAGNESIUM Stat Lab 05/22/19 18:07 Completed Manual Differential NC Stat Lab 05/22/19 18:07 Completed TROPONIN Q3H Lab 05/22/19 20:15 Ordered TROPONIN Q3H Lab 05/22/19 23:15 Ordered TROPONIN Q3H Lab 05/23/19 02:15 Ordered TROPONIN Q3H Lab 05/23/19 05:15 Ordered TROPONIN Q3H Lab 05/23/19 08:15 Ordered Medication Summary Discontinued Medications Generic Name Dose Route Start Last Admin Trade Name Freq PRN Reason Stop Dose Admin Azithromycin 500 mg 05/22/19 19:30 05/22/19 19:35 Zithromax 250 Mg Tablet PO 05/22/19 19:31 500 mg STAT ONE Administration Azithromycin Confirm 05/22/19 19:33 Zithromax 250 Mg Tablet Administered 05/22/19 19:34 Dose 500 mg .ROUTE .STK-MED ONE Clonidine 0.1 mg 05/22/19 17:17 05/22/19 17:21 Catapres 0.1 Mg PO 05/22/19 17:18 0.1 mg STAT ONE Administration Clonidine Confirm 05/22/19 17:20 Catapres 0.1 Mg Administered 05/22/19 17:21 Dose 0.1 mg .ROUTE .STK-MED ONE Labetalol HCl 10 mg 05/22/19 20:06 05/22/19 20:15 Trandate 20 Mg/5 Ml Syringe IV 05/22/19 20:07 10 mg STAT ONE Administration Labetalol HCl Confirm 05/22/19 20:15 Trandate 100 Mg/20 Ml Mdv For Drip Administered 05/22/19 20:16 Dose 100 mg IV .STK-MED ONE Nitroglycerin 0.4 mg 05/22/19 19:29 05/22/19 19:35 Nitrostat 0.4 Mg (Ed) SL 05/22/19 19:30 0.4 mg STAT ONE Administration Potassium Chloride 40 meq 05/22/19 19:30 05/22/19 19:35 Klor Con 10 Meq PO 05/22/19 19:31 40 meq STAT ONE Administration Potassium Chloride Confirm 05/22/19 19:33 Klor Con 10 Meq Administered 05/22/19 19:34 Dose 40 meq PO .STK-MED ONE Lab/Rad Data: Laboratory Result Diagrams 05/22/19 18:07 05/22/19 18:07 Laboratory Results 05/22/19 05/22/19 Range/Units 18:07 18:07 WBC 7.2 (4.0-10.5) K/mm3 RBC 4.33 (4.1-5.4) M/mm3 Hgb 14.6 (12.0-16.0) gm/dl Hct 41.7 (35-47) % MCV 96.3 (78-100) fl MCH 33.7 H (26-32) pg MCHC 35.0 (32-36) g/dl RDW 12.4 (11.5-14.0) % Plt Count 241 (150-450) K/mm3 MPV 9.8 (7.5-11.0) fl Sodium 139 (137-145) mmol/L Potassium 3.2 L (3.5-5.1) mmol/L Chloride 103 (98-107) mmol/L Carbon Dioxide 28 (22-30) mmol/L Anion Gap 11.6 (5-15) MEQ/L BUN 24 H (7-17) mg/dL Creatinine 0.70 (0.52-1.04) mg/dL Estimated GFR > 60.0 ML/MIN Glucose 111 H (74-106) mg/dL Calcium 9.0 (8.4-10.2) mg/dL Magnesium 2.1 (1.6-2.3) mg/dL - Progress Progress: unchanged Discussed with : Kang (obs) - Departure Departure Disposition: Observation Clinical Impression: hypokalemia, Headache, Sinusitis, Uncontrolled hypertension Condition: Fair Critical Care Time: Yes Critical Care Time(excluding separately billable procedures): Critical 30-74 mins Referrals: PASHA ELIZALDE MD [Primary Care Provider] -
[2019-05-22] MEDS ORDERED: Catapres 0.1 MG PO ONE (17:17)
[2019-05-22] MEDS ORDERED: Catapres 0.1 MG ONE (17:20)
[2019-05-22 18:10] LABS: Hematocrit 41.7 % (35-47); Hemoglobin 14.6 gm/dl (12.0-16.0); Mean Cell Volume 96.3 fl (78-100); Mean Corpuscular Hemoglobin 33.7 pg (26-32); Mean Platelet Volume 9.8 fl (7.5-11.0); Platelet Count 241 K/mm3 (150-450); Red Blood Count 4.33 M/mm3 (4.1-5.4); Red Cell Distribution Width 12.4 % (11.5-14.0); White Blood Count 7.2 K/mm3 (4.0-10.5)
[2019-05-22 18:19] LABS: ANION GAP 11.6 MEQ/L (5-15); BLOOD UREA NITROGEN 24 mg/dL (7-17); CHLORIDE 103 mmol/L (98-107); Carbon Dioxide 28 mmol/L (22-30); Glucose 111 mg/dL (74-106); MAGNESIUM 2.1 mg/dL (1.6-2.3); Potassium 3.2 mmol/L (3.5-5.1); SODIUM 139 mmol/L (137-145)
--- NOTE | 2019-05-22 18:55 | XRAY ---
Indication: Left-sided headache. Elevated blood pressure. Multiple contiguous axial images obtained through the head without contrast. Comparison: None Normal appearing brain parenchyma, ventricles, and bony calvarium. There is near complete opacification of both frontal sinuses and minimal mucosal thickening of both ethmoid sinuses. Mastoid air cells are clear. Impression: Paranasal sinus disease. Remaining CT head without contrast exam is normal. Comment: Preliminary interpretation was made by [facility]. No critical discrepancy.
[2019-05-22] MEDS ORDERED: Nitrostat 0.4 MG (ED) SL ONE (19:29)
[2019-05-22] MEDS ORDERED: Zithromax 250 MG TABLET PO ONE (19:30)
[2019-05-22] MEDS ORDERED: Klor Con 10 MEQ PO ONE ×2 (19:30→19:33)
[2019-05-22] MEDS ORDERED: Zithromax 250 MG TABLET ONE (19:33)
[2019-05-22] MEDS ORDERED: TRANDATE 20 MG/5 ML SYRINGE IV ONE (20:06)
[2019-05-22] MEDS ORDERED: TRANDATE 100 MG/20 ML MDV FOR DRIP IV ONE ×2 (20:15→22:54)
[2019-05-22] MEDS ORDERED: Sodium Chloride 0.9% 1000 ML 1,000 ML IV SCH (21:42)
[2019-05-22] MEDS ORDERED: TYLENOL 325 MG PO PRN (21:42)
[2019-05-22] MEDS ORDERED: Nitrostat 0.4 MG Tablet SL PRN (21:42)
[2019-05-22] MEDS ORDERED: Phenergan 25 MG INJ IV PRN (21:42)
[2019-05-22] MEDS ORDERED: TRANDATE 20 MG/5 ML SYRINGE IV PRN (21:42)
[2019-05-23 01:42] LABS: Lymphocytes 20 % (24-44); Monocyte 9 % (0.0-12.0); Neutrophils 71 % (36.0-66.0); Platelet Estimate NORMAL (NORMAL); Total Cells Counted 100
[2019-05-23 05:03] LABS: Hemoglobin 13.1 gm/dl (12.0-16.0); Mean Cell Volume 97.2 fl (78-100); Mean Corpuscular Hemoglobin 33.5 pg (26-32); Mean Corpuscular Hgb Concent. 34.5 g/dl (32-36); Platelet Count 225 K/mm3 (150-450); Red Blood Count 3.91 M/mm3 (4.1-5.4); Red Cell Distribution Width 12.4 % (11.5-14.0)
[2019-05-23 05:08] LABS: ALBUMIN 3.1 g/dL (3.5-5.0); ALKALINE PHOSPHATASE 53 U/L (38-126); ANION GAP 9.8 MEQ/L (5-15); BLOOD UREA NITROGEN 16 mg/dL (7-17); CHLORIDE 106 mmol/L (98-107); Calcium 8.5 mg/dL (8.4-10.2); Carbon Dioxide 27 mmol/L (22-30); Creatinine 1 0.64 mg/dL (0.52-1.04); Glucose 84 mg/dL (74-106); Potassium 3.6 mmol/L (3.5-5.1); SGOT/AST 28 U/L (14-36); SGPT/ALT 20 U/L (0-35); SODIUM 139 mmol/L (137-145)
[2019-05-23] MEDS: TRANDATE 100 MG/20 ML MDV FOR DRIP IV PRN ×5 (07:07→23:37)
--- NOTE | 2019-05-23 08:33 | XRAY ---
Indication: Hypertension. Comparison: July 23, 2017. PA/lateral chest again hyperinflated with a few incidental calcified granulomas. No focal infiltrate, consolidation, or large effusion. Heart and mediastinal structures within normal limits. Bony thorax intact again with mild osteopenia and degenerative changes. Impression: Nonacute hyperinflated chest with chronic features.
[2019-05-23] MEDS ORDERED: NORVASC 5 MG PO ONE (09:00)
[2019-05-23] MEDS: Apresoline 25 MG TABLET PO SCH ×4 (09:13→23:36)
--- NOTE | 2019-05-23 13:32 | PCM.HP ---
History of Present Illness - Chief Complaint Chief Complaint: uncontrolled hypertension History of Present Illness: is a 64 year old female.Pt states that her blood pressure was 205/95 approx 30 minutes ago, pt had been taken off of Lisinopril this past week due to a possible allergic reaction with a swollen tongue, placed her on Metoprolol and she had hives the next day and so she was told to stop that one, she goes to the [facility] on , she does take Amlodipine still - Review of Systems Constitutional: No Fever, No Chills Eyes: No Symptoms Ears, Nose, & Throat: No Symptoms Respiratory: No Cough, No Short Of Breath Cardiac: No Chest Pain, No Edema, No Syncope Abdominal/Gastrointestinal: No Abdominal Pain, No Nausea, No Vomiting, No Diarrhea Genitourinary Symptoms: No Dysuria Musculoskeletal: No Back Pain, No Neck Pain Skin: No Rash Neurological: No Dizziness, No Focal Weakness, No Sensory Changes Psychological: No Symptoms Endocrine: No Symptoms Hematologic/Lymphatic: No Symptoms Immunological/Allergic: No Symptoms Medications & Allergies Home Medications: Home Medication List Aspirin EC 81 mg [Ecotrin 81 mg] 81 mg PO DAILY tablet.ec 07/24/17 [Rx Confirmed 05/22/19] Amlodipine Besylate 5 mg [Norvasc 5 mg] 5 mg PO HS 05/23/19 [History Confirmed 05/22/19] Allergies/Adverse Reactions: Allergies Allergy/AdvReac Type Severity Reaction Status Date / Time lisinopril AdvReac Swelling Verified 05/22/19 15:57 - Past Medical History Past Medical History: Yes Neurological History: No Pertinent History ENT History: No Pertinent History Cardiac History: Hypertension Respiratory History: No Pertinent History Endocrine Medical History: No Pertinent History Musculoskelatal History: No Pertinent History GI Medical History: No Pertinent History History: No Pertinent History Pyscho-Social History: No Pertinent History Reproductive Disorders: No Pertinent History Comment: hypertension, blood clot in lung - Female History Are you now?: No - Past Surgical History Past Surgical History: Yes Neuro Surgical History: No Pertinent History Cardiac History: No Pertinent History Respiratory Surgery: No Pertinent History GI Surgical History: No Pertinent History Genitourinary Surgical Hx: No Pertinent History Musculskeletal Surgical Hx: No Pertinent History Female Surgical History: Hysterectomy - Social History Smoking Status: Current every day smoker How long have you smoked: 35 yrs Exposure to second hand smoke: No Alcohol: Daily Drug Use: none - Physical Exam Vital Signs: Vital Signs - 24 hr Temp Pulse Resp BP Pulse Ox 05/23/19 12:00 98.7 F 58 L 16 178/85 97 05/23/19 10:30 170/85 05/23/19 08:29 62 190/100 05/23/19 07:38 97.8 F 67 16 196/89 97 05/23/19 07:00 96 05/23/19 04:15 97.8 F 59 L 20 182/88 95 05/23/19 00:57 95 05/23/19 00:00 63 18 145/70 95 05/22/19 21:42 98.1 F 68 20 181/85 97 05/22/19 21:32 64 16 175/88 95 05/22/19 20:45 99 05/22/19 20:33 60 18 176/87 97 05/22/19 20:19 68 16 170/92 95 05/22/19 20:00 68 16 199/97 95 05/22/19 19:51 68 16 168/95 96 05/22/19 19:05 78 18 182/89 97 05/22/19 18:04 72 22 184/92 96 05/22/19 16:56 69 19 181/89 97 05/22/19 15:49 98.1 F 73 19 191/82 99 General Appearance: no apparent distress, alert Neurologic Exam: alert, oriented x 3, cooperative, normal mood/affect, nml cerebellar function, nml station & gait, sensation nml, No motor deficits Eye Exam: PERRL/EOMI, eyes nml inspection Ears, Nose, Throat Exam: normal ENT inspection, TMs normal, pharynx normal, moist mucous membranes Neck Exam: normal inspection, non-tender, supple, full range of motion Respiratory Exam: normal breath sounds, lungs clear, No respiratory distress Cardiovascular Exam: regular rate/rhythm, normal heart sounds, normal peripheral pulses Gastrointestinal/Abdomen Exam: soft, normal bowel sounds, No tenderness, No mass Back Exam: normal inspection, normal range of motion, No CVA tenderness, No vertebral tenderness Extremity Exam: normal inspection, normal range of motion, pelvis stable Skin Exam: normal color, warm, dry, No rash Lymphatic Exam: No adenopathy Results - Labs Lab/Micro Results: Lab Results-Last 24 Hours 05/22/19 05/22/19 05/22/19 Range/Units 01:00 18:07 18:07 WBC 7.2 (4.0-10.5) K/mm3 RBC 4.33 (4.1-5.4) M/mm3 Hgb 14.6 (12.0-16.0) gm/dl Hct 41.7 (35-47) % MCV 96.3 (78-100) fl MCH 33.7 H (26-32) pg MCHC 35.0 (32-36) g/dl RDW 12.4 (11.5-14.0) % Plt Count 241 (150-450) K/mm3 MPV 9.8 (7.5-11.0) fl Segmented Neutrophils 71 H (36.0-66.0) % Lymphocytes (Manual) 20 L (24-44) % Monocytes (Manual) 9 (0.0-12.0) % Platelet Estimate NORMAL (NORMAL) RBC Morphology NORMAL Sodium 139 (137-145) mmol/L Potassium 3.2 L (3.5-5.1) mmol/L Chloride 103 (98-107) mmol/L Carbon Dioxide 28 (22-30) mmol/L Anion Gap 11.6 (5-15) MEQ/L BUN 24 H (7-17) mg/dL Creatinine 0.70 (0.52-1.04) mg/dL Estimated GFR > 60.0 ML/MIN Glucose 111 H (74-106) mg/dL Calcium 9.0 (8.4-10.2) mg/dL Magnesium 2.1 (1.6-2.3) mg/dL Total Bilirubin (0.2-1.3) mg/dL AST (14-36) U/L ALT (0-35) U/L Alkaline Phosphatase (38-126) U/L Troponin I < 0.012 (0.000-0.034) ng/mL Serum Total Protein (6.3-8.2) g/dL Albumin (3.5-5.0) g/dL 05/22/19 05/22/19 05/23/19 Range/Units 20:15 21:42 04:32 WBC (4.0-10.5) K/mm3 RBC (4.1-5.4) M/mm3 Hgb (12.0-16.0) gm/dl Hct (35-47) % MCV (78-100) fl MCH (26-32) pg MCHC (32-36) g/dl RDW (11.5-14.0) % Plt Count (150-450) K/mm3 MPV (7.5-11.0) fl Segmented Neutrophils (36.0-66.0) % Lymphocytes (Manual) (24-44) % Monocytes (Manual) (0.0-12.0) % Platelet Estimate (NORMAL) RBC Morphology Sodium 139 (137-145) mmol/L Potassium 3.6 (3.5-5.1) mmol/L Chloride 106 (98-107) mmol/L Carbon Dioxide 27 (22-30) mmol/L Anion Gap 9.8 (5-15) MEQ/L BUN 16 (7-17) mg/dL Creatinine 0.64 (0.52-1.04) mg/dL Estimated GFR > 60.0 ML/MIN Glucose 84 (74-106) mg/dL Calcium 8.5 (8.4-10.2) mg/dL Magnesium (1.6-2.3) mg/dL Total Bilirubin 0.50 (0.2-1.3) mg/dL AST 28 (14-36) U/L ALT 20 (0-35) U/L Alkaline Phosphatase 53 (38-126) U/L Troponin I < 0.012 < 0.012 (0.000-0.034) ng/mL Serum Total Protein 6.0 L (6.3-8.2) g/dL Albumin 3.1 L (3.5-5.0) g/dL 05/23/19 Range/Units 05:00 WBC 8.0 (4.0-10.5) K/mm3 RBC 3.91 L (4.1-5.4) M/mm3 Hgb 13.1 (12.0-16.0) gm/dl Hct 38.0 (35-47) % MCV 97.2 (78-100) fl MCH 33.5 H (26-32) pg MCHC 34.5 (32-36) g/dl RDW 12.4 (11.5-14.0) % Plt Count 225 (150-450) K/mm3 MPV 10.0 (7.5-11.0) fl Segmented Neutrophils (36.0-66.0) % Lymphocytes (Manual) (24-44) % Monocytes (Manual) (0.0-12.0) % Platelet Estimate (NORMAL) RBC Morphology Sodium (137-145) mmol/L Potassium (3.5-5.1) mmol/L Chloride (98-107) mmol/L Carbon Dioxide (22-30) mmol/L Anion Gap (5-15) MEQ/L BUN (7-17) mg/dL Creatinine (0.52-1.04) mg/dL Estimated GFR ML/MIN Glucose (74-106) mg/dL Calcium (8.4-10.2) mg/dL Magnesium (1.6-2.3) mg/dL Total Bilirubin (0.2-1.3) mg/dL AST (14-36) U/L ALT (0-35) U/L Alkaline Phosphatase (38-126) U/L Troponin I (0.000-0.034) ng/mL Serum Total Protein (6.3-8.2) g/dL Albumin (3.5-5.0) g/dL - Radiology Impressions Radiology Exams & Impressions: Radiology Procedures Category Date Time Status CHEST 2 VIEWS (PA AND LAT) Stat Exams 05/22/19 20:08 Completed HEAD WITHOUT CONTRAST [CT] Stat Exams 05/22/19 17:17 Completed Assessment/Plan (1) Uncontrolled hypertension Current Visit: Yes Status: Acute Assessment & Plan: Last Vital Signs Temp 98.7 F 05/23/19 12:00 Pulse 58 L 05/23/19 12:00 Resp 16 05/23/19 12:00 BP 178/85 05/23/19 12:00 Pulse Ox 97 05/23/19 12:00 Allergies lisinopril Adverse Reaction (Verified 05/22/19 15:57) Swelling Active Medications Acetaminophen (Tylenol 325 Mg) 650 mg PO Q4H PRN PRN PRN Reason: PAIN, FEVER, HEADACHE Stop: 06/21/19 21:41 Amlodipine Besylate (Norvasc 5 Mg) 10 mg PO QAM JOSE Stop: 06/23/19 09:59 Azithromycin (Zithromax 250 Mg Tablet) 500 mg PO QPM JOSE Stop: 06/22/19 21:59 Hydralazine HCl (Apresoline 25 Mg Tablet) 50 mg PO Q6HT [facility] Stop: 06/22/19 08:59 Last Admin: 05/23/19 13:06 Dose: 50 mg Sodium Chloride (Sodium Chloride 0.9% 1000 Ml) 1,000 mls @ 50 mls/hr IV .Q20H JOSE Stop: 06/21/19 21:41 Last Admin: 05/22/19 22:55 Dose: 50 mls/hr Labetalol HCl (Trandate 100 Mg/20 Ml Mdv For Drip) 10 mg IV .Q20MIN PRN PRN PRN Reason: BP > 180/100 Stop: 06/22/19 06:32 Last Admin: 05/23/19 08:25 Dose: 10 mg Nitroglycerin (Nitrostat 0.4 Mg Tablet) 0.4 mg SL Q5MIN PRN MR X 3 PRN PRN Reason: CHEST PAIN Stop: 06/21/19 21:41 Promethazine HCl (Phenergan 25 Mg Inj) 12.5 mg IV Q6H PRN PRN PRN Reason: NAUSEA/VOMITING Stop: 06/21/19 21:41 Intake & Output 05/23/19 05/24/19 11:59 11:59 Intake Total 731 Output Total 800 Balance -69 Weight 57.7 kg Orders 05/23/19 09:00 HydrALAzine HCL 25 MG TAB [Apresoline 25 MG TABLET] 50 mg PO Q6HT 05/24/19 10:00 Amlodipine Besylate 5 mg [Norvasc 5 mg] 10 mg PO QAM Lab Tests 05/22/19 05/22/19 05/22/19 01:00 18:07 18:07 WBC 7.2 RBC 4.33 Hgb 14.6 Hct 41.7 MCV 96.3 MCH 33.7 H MCHC 35.0 RDW 12.4 Plt Count 241 MPV 9.8 Segmented Neutrophils 71 H Lymphocytes (Manual) 20 L Monocytes (Manual) 9 Platelet Estimate NORMAL RBC Morphology NORMAL Sodium 139 Potassium 3.2 L Chloride 103 Carbon Dioxide 28 Anion Gap 11.6 BUN 24 H Creatinine 0.70 Estimated GFR > 60.0 Glucose 111 H Calcium 9.0 Magnesium 2.1 Total Bilirubin AST ALT Alkaline Phosphatase Troponin I < 0.012 Serum Total Protein Albumin 05/22/19 05/22/19 05/23/19 20:15 21:42 04:32 WBC RBC Hgb Hct MCV MCH MCHC RDW Plt Count MPV Segmented Neutrophils Lymphocytes (Manual) Monocytes (Manual) Platelet Estimate RBC Morphology Sodium 139 Potassium 3.6 Chloride 106 Carbon Dioxide 27 Anion Gap 9.8 BUN 16 Creatinine 0.64 Estimated GFR > 60.0 Glucose 84 Calcium 8.5 Magnesium Total Bilirubin 0.50 AST 28 ALT 20 Alkaline Phosphatase 53 Troponin I < 0.012 < 0.012 Serum Total Protein 6.0 L Albumin 3.1 L 05/23/19 05:00 WBC 8.0 RBC 3.91 L Hgb 13.1 Hct 38.0 MCV 97.2 MCH 33.5 H MCHC 34.5 RDW 12.4 Plt Count 225 MPV 10.0 Segmented Neutrophils Lymphocytes (Manual) Monocytes (Manual) Platelet Estimate RBC Morphology Sodium Potassium Chloride Carbon Dioxide Anion Gap BUN Creatinine Estimated GFR Glucose Calcium Magnesium Total Bilirubin AST ALT Alkaline Phosphatase Troponin I Serum Total Protein Albumin Code(s): I10 - ESSENTIAL (PRIMARY) HYPERTENSION (2) Angioedema Current Visit: No Status: Acute Code(s): T78.3XXA - ANGIONEUROTIC EDEMA, INITIAL ENCOUNTER (3) Angioedema of lips Current Visit: Yes Status: Acute Qualifiers: Encounter type: subsequent encounter Qualified Code(s): T78.3XXD - Angioneurotic edema, subsequent encounter Code(s): T78.3XXA - ANGIONEUROTIC EDEMA, INITIAL ENCOUNTER
[2019-05-23] MEDS: Sodium Chloride 0.9% 10 ML FLUSH Syringe IV SCH (21:21)
[2019-05-23] MEDS ORDERED: Zithromax 250 MG TABLET PO SCH (22:00)
[2019-05-24] MEDS: TRANDATE 100 MG/20 ML MDV FOR DRIP IV PRN ×3 (01:03→04:32)
[2019-05-24] MEDS: Apresoline 25 MG TABLET PO SCH ×2 (04:27→09:46)
[2019-05-24] MEDS: Sodium Chloride 0.9% 10 ML FLUSH Syringe IV SCH (04:40)
[2019-05-24 04:41] VITALS: PULSE 63
[2019-05-24 08:11] VITALS: BP 184/90; O2SAT 98
--- NOTE | 2019-05-24 09:10 | PCM.DS ---
Discharge Summary Date of Admission: 05/22/19 21:41 Admitting Physician: PASHA ELIZALDE Primary Care Provider: PASHA ELIZALDE Allergies Allergies lisinopril Adverse Reaction (Verified 05/22/19 15:57) Swelling Hospital Summary - Hospital Course Hospital Course: Chief Complaint Diagnosis uncontrolled hypertension Allergies Allergy/AdvReac Type Severity Reaction Status Date / Time lisinopril AdvReac Swelling Verified 05/22/19 15:57 Vital Signs (Last 24 hours) Temp Pulse Resp BP Pulse Ox 05/24/19 08:00 98.6 F 63 18 184/90 98 05/24/19 04:40 98.2 F 63 18 202/98 97 05/24/19 02:25 182/88 05/24/19 00:59 192/90 05/23/19 23:00 98.6 F 68 18 210/102 98 05/23/19 19:27 98.9 F 65 18 176/86 98 05/23/19 16:00 97.7 F 62 18 190/87 98 05/23/19 12:00 98.7 F 58 L 16 178/85 97 05/23/19 10:30 170/85 Current Medications Generic Name Dose Route Start Last Admin Trade Name Freq PRN Reason Stop Dose Admin Acetaminophen 650 mg 05/22/19 21:42 05/24/19 04:30 Tylenol 325 Mg PO 06/21/19 21:41 650 mg Q4H PRN PRN Administration PAIN, FEVER, HEADACHE Amlodipine Besylate 10 mg 05/24/19 10:00 Norvasc 5 Mg PO 06/23/19 09:59 QAM JOSE Aspirin 81 mg 05/24/19 10:00 Ecotrin 81 Mg PO 06/23/19 09:59 DAILY JOSE Azithromycin 500 mg 05/23/19 22:00 05/23/19 21:21 Zithromax 250 Mg Tablet PO 06/22/19 21:59 500 mg QPM JOSE Administration Hydralazine HCl 50 mg 05/23/19 09:00 05/24/19 04:27 Apresoline 25 Mg Tablet PO 06/22/19 08:59 50 mg Q6HT JOSE Administration Labetalol HCl 10 mg 05/23/19 06:33 05/24/19 04:32 Trandate 100 Mg/20 Ml Mdv For Drip IV 06/22/19 06:32 10 mg .Q20MIN PRN PRN Administration BP > 180/100 Nitroglycerin 0.4 mg 05/22/19 21:42 Nitrostat 0.4 Mg Tablet SL 06/21/19 21:41 Q5MIN PRN MR X 3 PRN CHEST PAIN Promethazine HCl 12.5 mg 05/22/19 21:42 Phenergan 25 Mg Inj IV 06/21/19 21:41 Q6H PRN PRN NAUSEA/VOMITING Sodium Chloride 10 ml 05/23/19 22:00 05/24/19 04:40 Sodium Chloride 0.9% 10 Ml Flush Syringe IV 06/22/19 21:59 10 ml Q8HT JOSE Administration Discontinued Medications Generic Name Dose Route Start Last Admin Trade Name Freq PRN Reason Stop Dose Admin Amlodipine Besylate 5 mg 05/23/19 09:00 05/23/19 09:14 Norvasc 5 Mg PO 05/23/19 09:01 5 mg STAT ONE Administration Azithromycin 500 mg 05/22/19 19:30 05/22/19 19:35 Zithromax 250 Mg Tablet PO 05/22/19 19:31 500 mg STAT ONE Administration Azithromycin Confirm 05/22/19 19:33 Zithromax 250 Mg Tablet Administered 05/22/19 19:34 Dose 500 mg .ROUTE .STK-MED ONE Clonidine 0.1 mg 05/22/19 17:17 05/22/19 17:21 Catapres 0.1 Mg PO 05/22/19 17:18 0.1 mg STAT ONE Administration Clonidine Confirm 05/22/19 17:20 Catapres 0.1 Mg Administered 05/22/19 17:21 Dose 0.1 mg .ROUTE .STK-MED ONE Sodium Chloride 1,000 mls @ 50 mls/hr 05/22/19 21:42 05/22/19 22:55 Sodium Chloride 0.9% 1000 Ml IV 06/21/19 21:41 50 mls/hr .Q20H JOSE Administration Labetalol HCl 10 mg 05/22/19 20:06 05/22/19 20:15 Trandate 20 Mg/5 Ml Syringe IV 05/22/19 20:07 10 mg STAT ONE Administration Labetalol HCl Confirm 05/22/19 20:15 Trandate 100 Mg/20 Ml Mdv For Drip Administered 05/22/19 20:16 Dose 100 mg IV .STK-MED ONE Labetalol HCl 10 mg 05/22/19 21:42 05/22/19 23:05 Trandate 20 Mg/5 Ml Syringe IV 06/21/19 21:41 10 mg PRN PRN Administration q20 min prn bp > 180/110 Labetalol HCl Confirm 05/22/19 22:54 Trandate 100 Mg/20 Ml Mdv For Drip Administered 05/22/19 22:55 Dose 100 mg IV .STK-MED ONE Nitroglycerin 0.4 mg 05/22/19 19:29 05/22/19 19:35 Nitrostat 0.4 Mg (Ed) SL 05/22/19 19:30 0.4 mg STAT ONE Administration Potassium Chloride 40 meq 05/22/19 19:30 05/22/19 19:35 Klor Con 10 Meq PO 05/22/19 19:31 40 meq STAT ONE Administration Potassium Chloride Confirm 05/22/19 19:33 Klor Con 10 Meq Administered 05/22/19 19:34 Dose 40 meq PO .STK-MED ONE Intake & Output (Last 24 hours) 05/21/19 05/22/19 05/23/19 05/24/19 11:59 11:59 11:59 11:59 Intake Total 731 1616 Output Total 800 2700 Balance -69 -1084 Weight 57.7 kg 57.5 kg Orders (Last 24 hours) Category Date Time Status Saline Lock [Change IV to Saline Lock] ROUTINE Care 05/23/19 14:49 Completed Amlodipine Besylate 5 mg [Norvasc 5 mg] Med 05/24/19 10:00 Active 10 mg PO QAM Amlodipine Besylate 5 mg [Norvasc 5 mg] Med 05/23/19 09:00 Discontinued 5 mg PO STAT ONE Aspirin EC 81 mg [Ecotrin 81 mg] Med 05/24/19 10:00 Active 81 mg PO DAILY Azithromycin 250 mg [Zithromax 250 MG TABLET] Med 05/23/19 22:00 Active 500 mg PO QPM HydrALAzine HCL 25 MG TAB [Apresoline 25 MG TABLET Med 05/23/19 09:00 Active *] 50 mg PO Q6HT NaCl 0.9% 10 ML FLUSH [Sodium Chloride 0.9% 10 ML FLUSH Med 05/23/19 22:00 Active Syringe] 10 ml IV Q8HT - Vitals & Intake/Output Vital Signs: Vital Signs Temperature 98.6 F 05/24/19 08:00 Pulse Rate 63 05/24/19 08:00 Respiratory Rate 18 05/24/19 08:00 Blood Pressure 184/90 05/24/19 08:00 O2 Sat by Pulse Oximetry 98 05/24/19 08:00 Intake & Output: Intake & Output 05/21/19 05/22/19 05/23/19 05/24/19 11:59 11:59 11:59 11:59 Intake Total 731 1616 Output Total 800 2700 Balance -69 -1084 Weight 57.7 kg 57.5 kg - Lab Result Diagrams: 05/23/19 05:00 05/23/19 04:32 - Radiology Exams Ordered Rad Exams-Entire Visit: Radiology Procedures Category Date Time Status CHEST 2 VIEWS (PA AND LAT) Stat Exams 05/22/19 20:08 Completed HEAD WITHOUT CONTRAST [CT] Stat Exams 05/22/19 17:17 Completed - Procedures and Test Procedures and Tests throughout Hospitalization: Therapy Orders & Screens 05/22/19 21:42 EKG [id number] Comment: Oxygen Nasal Cannula 2 lpm Comment: 05/22/19 22:32 Smoking Cessation Education ONCE Comment: Diagnosis: uncontrolled hypertension Smoking Status: Current every day smoker How long have you smoked: 35 yrs Have you smoked in the past 12 months: Yes Approximately how many cigarettes per day: 1/2 pk Do you dip or chew tobacco: No 05/23/19 04:30 EKG ROUTINE Comment: Diagnosis: uncontrolled hypertension Discharge Exam General Appearance: no apparent distress, alert Neurologic Exam: alert, oriented x 3, cooperative, normal mood/affect, nml cerebellar function, sensation nml, No motor deficits Eye Exam: PERRL, EOMI, eyes nml inspection Ears, Nose, Throat Exam: normal ENT inspection, pharynx normal, moist mucous membranes Neck Exam: normal inspection, non-tender, supple, full range of motion Respiratory Exam: normal breath sounds, lungs clear, No respiratory distress Cardiovascular Exam: regular rate/rhythm, normal heart sounds Gastrointestinal/Abdomen Exam: soft, No tenderness, No mass Pelvic Exam: deferred Rectal Exam: deferred Back Exam: normal inspection, normal range of motion, No CVA tenderness, No vertebral tenderness Extremity Exam: normal inspection, normal range of motion Skin Exam: normal color, warm, dry Final Diagnosis/Problem List - Final Discharge Diagnosis/Problem (1) Uncontrolled hypertension Current Visit: Yes Status: Acute Priority: High Code(s): I10 - ESSENTIAL ( PRIMARY) HYPERTENSION (2) Angioedema Current Visit: Yes Status: Resolved Code(s): T78.3XXA - ANGIONEUROTIC EDEMA , INITIAL ENCOUNTER (3) Angioedema of lips Current Visit: Yes Status: Resolved Code(s): T78.3XXA - ANGIONEUROTIC EDEMA , INITIAL ENCOUNTER - Discharge Discharge Date: 05/24/19 Disposition: Home, Self-Care Condition: Stable Prescriptions: New HydrALAzine HCL 25 MG TAB [Apresoline 25 MG TABLET] 50 mg PO Q6HT #120 tablet Amlodipine Besylate 5 mg [Norvasc 5 mg] 10 mg PO QAM #30 tablet Labetalol HCl 100 mg [Trandate 100 MG] 100 mg PO BID #60 tablet Discontinued Aspirin EC 81 mg [Ecotrin 81 mg] 81 mg PO DAILY tablet.ec Instructions: High Blood Pressure (DC) Follow up with: PASHA ELIZALDE MD [Primary Care Provider] - 1 Week
[2019-05-24] MEDS ORDERED: Trandate 100 MG PO ONE (09:38)
[2019-05-24] MEDS ORDERED: ECOTRIN 81 MG PO SCH (10:00)
[2019-05-24] MEDS ORDERED: NORVASC 5 MG PO SCH (10:00)
== END 2019-05-24 09:50 | disposition home or self-care (01) ==
LOC: ED 15:45 → MED SURG 21:41
PROVIDERS: ADMIT General Practice; ATTEND General Practice
DX: I10 Essential (primary) hypertension (principal); T78.3XXA Angioneurotic edema, initial encounter; Z79.899 Other long term (current) drug therapy
CPT/HCPCS: 36415; 70450; 80048; 80053; 83735; 84484; 85025; 85027; 93005; 93041; 93268; 94760; 96374; 99291; G0378; 36000; 71046; 99285; A9270-GY

== ENCOUNTER 2022-01-23 09:51 | Emergency (ER) | payer MEDICARE ==
--- NOTE | 2022-01-23 09:57 | ERPHSYRPT ---
- History of Present Illness Time Seen by Provider: 01/23/22 09:56 Historian: patient Exam Limitations: no limitations Physician History: This is a 66-year-old white female patient of Dr. Elizalde and presents to the emergency department with stringy bright red blood rectally this morning with approximately 2-3 bowel movements. Patient has been constipated for 2 to 3 days and then had the blood as described above in her bowel movement and she became concerned. She has had some generalized abdominal achiness that is mild but present. She is not on any anticoagulation therapy. She has no known liver disease. She is never had this before. She is never had a colonoscopy. She is a current daily smoker of cigarettes. She does have a history of hypertension. She has a remote history of pulmonary embolus. She did not take anything for the constipation. She also states that she does not take aspirin or ibuprofen regularly. She has not had any weight loss. Patient denies weakness, she denies chest pain, she denies shortness of breath. Patient has no history of bleeding or clotting disorders. Activities at Onset: none Quality: aching (Mild diffuse) Abdominal Pain Onset Location: generalized abdomen Pain Radiation: no radiation Severity of Pain-Max: mild Severity of Pain-Current: mild Modifying Factors: Improves With: nothing Associated Symptoms: denies symptoms Previous symptoms: no prior history Allergies/Adverse Reactions: lisinopril Adverse Reaction (Verified 05/22/19 15:57) Swelling Home Medications: Clonidine HCl 0.1 mg [Clonidine 0.1 mg Tablet] 0.1 mg PO BID 01/23/22 [History] Hx Tetanus, Diphtheria Vaccination/Date Given: Yes Hx Influenza Vaccination/Date Given: No Hx Pneumococcal Vaccination/Date Given: No Travel Risk - International Travel Have you traveled outside of the country in past 3 weeks: No - Coronavirus Screening Are you exhibiting any of the following symptoms?: No Close contact with a COVID-19 positive Pt in past 14-21 Days: No - Review of Systems Constitutional: No Symptoms Eyes: No Symptoms Ears, Nose, & Throat: No Symptoms Respiratory: No Symptoms Cardiac: No Symptoms Abdominal/Gastrointestinal: Abdominal Pain (Mild diffuse achiness), Hematochezia Genitourinary Symptoms: No Symptoms Musculoskeletal: No Symptoms Skin: No Symptoms Neurological: No Symptoms Psychological: No Symptoms Endocrine: No Symptoms Hematologic/Lymphatic: No Symptoms Immunological/Allergic: No Symptoms All Other Systems: Reviewed and Negative - Past Medical History Pertinent Past Medical History: Yes Neurological History: No Pertinent History ENT History: No Pertinent History Cardiac History: Hypertension Respiratory History: No Pertinent History Endocrine Medical History: No Pertinent History Musculoskeletal History: No Pertinent History GI Medical History: No Pertinent History History: No Pertinent History Psycho-Social History: No Pertinent History Female Reproductive Disorders: No Pertinent History Other Medical History: hypertension, blood clot in lung - Past Surgical History Past Surgical History: Yes Neuro Surgical History: No Pertinent History Cardiac: No Pertinent History Respiratory: No Pertinent History Gastrointestinal: No Pertinent History Genitourinary: No Pertinent History Musculoskeletal: No Pertinent History Female Surgical History: Hysterectomy - Social History Smoking Status: Current every day smoker How long have you smoked: 35 yrs Exposure to second hand smoke: No Drug Use: none Patient Lives Alone: No - Nursing Vital Signs Nursing Vital Signs: Initial Vital Signs Temperature 97.2 F 01/23/22 09:55 Pulse Rate 64 01/23/22 09:55 Respiratory Rate 20 01/23/22 09:55 Blood Pressure 122/73 01/23/22 09:55 O2 Sat by Pulse Oximetry 95 01/23/22 09:55 Pain Scale Pain Intensity 4 - Physical Exam General Appearance: no apparent distress, alert, anxiety Eye Exam: PERRL/EOMI, eyes nml inspection Ears, Nose, Throat Exam: normal ENT inspection, moist mucous membranes Neck Exam: normal inspection, non-tender, supple, full range of motion Respiratory Exam: normal breath sounds, lungs clear, No chest tenderness, No respiratory distress Cardiovascular Exam: regular rate/rhythm, normal heart sounds, normal peripheral pulses Gastrointestinal/Abdomen Exam: soft, normal bowel sounds, tenderness (Mild diffuse achiness), No guarding, No rebound Pelvic Exam: not done Rectal Exam: not done Back Exam: normal inspection, normal range of motion, CVA tenderness Extremity Exam: normal inspection, normal range of motion, pelvis stable Neurologic Exam: alert, oriented x 3, cooperative, asphalt raker II-XII nml as tested, normal mood/affect, nml cerebellar function, nml station & gait, sensation nml Skin Exam: normal color, warm, dry Lymphatic Exam: No adenopathy SpO2 Interpretation: normal O2 Delivery: Room Air - Course Nursing assessment & vital signs reviewed: Yes Ordered Tests: Active Orders 24 hr Category Date Time Status IV Insertion STAT Care 01/23/22 10:09 Active ABDOMEN AND PELVIS W/0 CONTRAS [CT] Stat Exams 01/23/22 10:31 Completed AMYLASE Stat Lab 01/23/22 10:18 Received CBC W DIFF Stat Lab 01/23/22 10:18 Received CMP Stat Lab 01/23/22 10:18 Received LIPASE Stat Lab 01/23/22 10:18 Received PROTIME WITH INR Stat Lab 01/23/22 10:18 Completed UA W/RFX CULTURE Stat Lab 01/23/22 Ordered Lab/Rad Data: Laboratory Results 01/23/22 Range/Units 10:18 PT 10.3 (9.4-12.5) SECONDS INR 0.97 (0.8-3.0) - Progress Progress: unchanged, pain not gone completely, re-examined Progress Note: 01/23/22 11:04 Scan of the abdomen pelvis without contrast shows minimal descending pericolonic stranding favoring colitis. There is no evidence of free air or abscess formation. There are also 2 choledocho micro calculi without distention of gallbladder or biliary tree. Counseled pt/family regarding: lab results, diagnosis, need for follow-up, rad results - Departure Departure Disposition: Home Clinical Impression: Colitis, Choledocholithiasis Condition: Stable Critical Care Time: No Referrals: PASHA ELIZALDE MD [Primary Care Provider] - Follow up/PCP as directed Additional Instructions: Drink plenty of fluids. Take your medication as prescribed. Follow-up with your primary care physician for further evaluation of the choledocholithiasis and for scheduling a colonoscopy as indicated. Prescriptions: Ciprofloxacin [Cipro 500 MG] 500 mg PO BID #14 tablet Metronidazole 500 mg [Flagyl 500 MG] 500 mg PO TID #21 tablet
[2022-01-23 10:22] LABS: Absolute Neutrophil Ct (ANC) 7.75 x10^3/uL (1.4-6.9); Basophil (Absolute #) 0.02 x10^3/uL (0-0.4); Eosinophil % 2.4 % (0.00-5.0); Eosinophil (Absolute #) 0.23 x10^3/uL (0-0.5); Hematocrit 40.5 % (35-47); Hemoglobin 13.5 g/dL (12.0-16.0); Lymphocyte (Absolute #) 1.13 x10^3/uL (1.0-4.6); Lymphocytes % 11.7 % (24.0-44.0); Mean Corpuscular Hgb Concent. 33.3 g/dL (32-36); Mean Platelet Volume 9.9 fL (7.5-11.0); Monocyte (Absolute #) 0.47 x10^3/uL (0.0-1.3); Monocytes % 4.9 % (0.0-12.0); Neutrophil % 80.5 % (36.0-66.0); Platelet Count 180 x10^3/uL (150-450); Red Blood Count 4.22 x10^6/uL (4.1-5.4); Red Cell Distribution Width 13.1 % (11.5-14.0); White Blood Count 9.6 x10^3/uL (4.0-10.5)
[2022-01-23 10:38] LABS: INR 0.97 (0.8-3.0); PROTIME 10.3 SECONDS (9.4-12.5)
--- NOTE | 2022-01-23 10:52 | XRAY ---
Indication: Blood in stool. Multiple contiguous axial images obtained through the abdomen and pelvis without contrast. Comparison: None Lung bases are clear. Heart not enlarged. Small hiatal hernia. Noncontrasted stomach and bowel loops appear nonobstructed with normal appendix. Descending colon demonstrates very minimal pericolonic stranding favoring colitis. No free fluid/air. 2 choledochal stones, largest 3-4 mm without abnormal biliary distention. Incidental tiny splenic calcified granulomas and hysterectomy. Remaining liver, gallbladder, pancreas, spleen, adrenal glands, kidneys, ureters, and bladder are unremarkable for noncontrast exam. Mild scattered aortoiliac calcifications without AAA. Osseous structures intact with moderate L5-S1 degenerative changes and minimal dextroscoliosis. Impression: 1. Minimal descending pericolonic stranding favoring colitis. 2. At least 2 choledochal micro-calculi. No abnormal distention of the gallbladder or biliary tree. Outpatient ERCP or MRCP may yield further information if clinically warranted. 3. Incidental small hiatal hernia, L5-S1 degenerative disc disease, and old granulomatous disease.
[2022-01-23 10:59] VITALS: O2SAT 98
[2022-01-23] MEDS ORDERED: Flagyl 500 MG PO ONE (11:03)
[2022-01-23] MEDS ORDERED: Levofloxacin 500 MG Tablet PO ONE (11:03)
[2022-01-23] MEDS ORDERED: Levofloxacin 500 MG Tablet ONE (11:13)
[2022-01-23] MEDS ORDERED: Flagyl 500 MG ONE (11:13)
[2022-01-23 11:17] VITALS: BP 137/69; PULSE 63
[2022-01-23 11:22] LABS: Epithelial Cells RARE /HPF (FEW); Mucus SLIGHT /HPF (NEGATIVE); WBC 0-2 /HPF (0-5)
[2022-01-23 11:24] LABS: Appearance CLEAR (CLEAR); Glucose NEGATIVE (NEGATIVE)
[2022-01-23 11:25] LABS: Bilirubin SMALL (NEGATIVE); Dipstick done @ ? MAIN LAB; Ketones NEGATIVE (NEGATIVE); Nitrite NEGATIVE (NEGATIVE); Protein,Urine Dip TRACE (Negative); RBC NEGATIVE Ery/ul (0-5); Specific Gravity >=1.030 (1.005-1.025); Urobilinogen 0.2 mg/dL (0-1)
[2022-01-23 11:26] LABS: Urine Cultured Indicated? NO
[2022-01-23 12:08] LABS: ALBUMIN 4.4 g/dL (3.5-5.0); ALKALINE PHOSPHATASE 96 U/L (38-126); AMYLASE 69 U/L (30-110); ANION GAP 12.1 MEQ/L (5-15); BLOOD UREA NITROGEN 14 mg/dL (7-17); CHLORIDE 106 mmol/L (98-107); Carbon Dioxide 23 mmol/L (22-30); Creatinine 1 0.84 mg/dL (0.52-1.04); EST GLOMERULAR FILTRATION RATE > 60.0 ML/MIN; Glucose 130 mg/dL (74-106); LIPASE 113 U/L (23-300); SGOT/AST 28 U/L (14-36); SGPT/ALT 16 U/L (0-35); SODIUM 137 mmol/L (137-145); Total Protein 7.3 g/dL (6.3-8.2)
== END 2022-01-23 11:50 | disposition home or self-care (01) ==
LOC: ED 09:51
DX: K52.9 Noninfective gastroenteritis and colitis, unspecified (principal); K80.50 Calculus of bile duct without cholangitis or cholecystitis without obstruction; K92.1 Melena; R10.84 Generalized abdominal pain; I10 Essential (primary) hypertension; Z72.0 Tobacco use; Z79.899 Other long term (current) drug therapy
CPT/HCPCS: 36000; 36415; 74176; 80053; 81015; 82150; 83690; 85025; 85610; 99284; A9270-GY

== ENCOUNTER 2023-11-02 08:11 | Day surgery (SDC) | payer MEDICARE ==
--- NOTE | 2023-11-02 08:19 | HP ---
HISTORY AND PHYSICAL HISTORY OF PRESENT ILLNESS: The patient has history of common bile duct stones, went to , apparently had some stones out. Patient is needing cholecystectomy at this time. PAST MEDICAL HISTORY: Hypertension. She has had colitis in the past, history of PE, diverticular disease in the past. HOME MEDICATIONS: Aspirin, labetalol, amlodipine, ergocalciferol, clonidine, hydralazine. ALLERGIES: Bactrim, lisinopril. PAST SURGICAL HISTORY: Hysterectomy. She had an ERCP in the past. SOCIAL HISTORY: Smoker. Occasional alcohol use. FAMILY HISTORY: Negative with regard to this problem. REVIEW OF SYSTEMS: Twelve systems reviewed, pertinent for other medical problems as noted above. She had ERCP to clean some stones out. She did not have any on ultrasound in the gallbladder itself; I recommend cholecystectomy. She will likely pass the stone; with chronic cholecystitis, will pass the stone. Otherwise, 12 systems reviewed, negative or noncontributory as above and per preadmission assessment. PHYSICAL EXAMINATION: GENERAL: Height 5 feet 1 inch. BMI 20. No acute distress. HEENT: Sclerae nonicteric. Extraocular movements intact. Oral mucous membranes moist. NECK: No JVD. CHEST: Clear, equal excursion, nonlabored breathing. CARDIOVASCULAR: Regular rate and rhythm. ABDOMEN: Soft. No peritoneal signs. EXTREMITIES: No cyanosis or edema. SKIN: Dry. NEUROLOGIC: Alert and oriented, moving all extremities symmetrically. PSYCHIATRIC: Appropriate mood and affect. IMPRESSION: She had some stones cleared on ERCP. She needs cholecystectomy at this time. General risks were explained in detail as mentioned above; risk of bleeding or infection; risk of trocar injury or hernia; risk of bile leak or bile duct injury; retained stone or sludge possibly requiring further procedure either ERCP or open procedure; general risk of anesthesia, DVT, PE, pneumonia; perioperative risk of aches and pains, bloating, constipation or loose stools possibly chronic in nature; possibility of no improvement of preoperative symptoms possibly requiring further workup, studies, or referrals. We will proceed with laparoscopic cholecystectomy, possibly open, as an outpatient. Otherwise, continue medications for hypertension.
[2023-11-02 08:47] VITALS: RESP 16
[2023-11-02] MEDS: Lactated Ringers 1,000 ML IV SCH (08:50)
[2023-11-02] MEDS: MEFOXIN 2 GM PREMIX** 2 GM/50 ML ML IV SCH (08:51)
[2023-11-02] MEDS ORDERED: Lactated Ringers 1,000 ML IV ONE (10:27)
[2023-11-02] MEDS ORDERED: Sensorcaine 0.25% 10 ML ONE (11:07)
[2023-11-02] MEDS ORDERED: ROCURONIUM BROMIDE IV ONE (11:15)
[2023-11-02] MEDS ORDERED: DIPRIVAN 200 MG/20 ML IV ONE (11:16)
[2023-11-02] MEDS ORDERED: SUBLIMAZE 100 MCG/2 ML ONE ×2 (11:16→12:29)
[2023-11-02] MEDS ORDERED: Versed 2 MG/2 ML Injection ONE (11:16)
[2023-11-02] MEDS ORDERED: BRIDION 200MG/2ML IV ONE (12:04)
[2023-11-02 13:27] VITALS: TEMP 98.6
[2023-11-02 13:42] VITALS: BP 119/60; PULSE 57; O2SAT 93
--- NOTE | 2023-11-03 10:31 | OP ---
SURGERY DATE/TIME: 11/02/2023 1118 - 1216 PREOPERATIVE DIAGNOSES: 1) History of common bile duct stones status post removal. 2) History of chronic cholecystitis, need for cholecystectomy. POSTOPERATIVE DIAGNOSES: 1) History of common bile duct stones status post removal. 2) History of chronic cholecystitis, need for cholecystectomy. PROCEDURE: Laparoscopic cholecystectomy. SURGEON: Juan Donis MD ANESTHESIA: General. ESTIMATED BLOOD LOSS: Minimal. INDICATIONS: As noted above, consent obtained. DESCRIPTION OF PROCEDURE AND FINDINGS: Patient was taken to the operating room. General anesthesia was induced, prepped and draped in usual sterile fashion. After official time-out, no disagreement in planned procedure, transverse incision made in the supraumbilical area. Fascia grasped and pulled up. Veress needle inserted. Tested with saline. An 11 mm bladeless port and camera inserted without difficulty, followed by two 5 mm right upper quadrant ports and a 5 mm epigastric port. The gallbladder had some chronic inflammation. Dissected posterior, lateral to anterior fashion slowly and carefully, the cystic duct and infundibular junction slowly and carefully well skeletonized until the critical view was obtained anteriorly and posteriorly. Once this was accomplished, cystic duct and cystic artery clipped x3 and divided in usual fashion. Gallbladder was slowly and carefully dissected free, staying directly on the gallbladder wall, clipping additional oozing side branches off the cystic artery/cystic vein as necessary. One of the graspers made a small little pinhole in the gallbladder, spilling a small amount of bile. There was no visible stone spillage. Gallbladder was contained and this was suctioned as clear as possible. Gallbladder was contained was dissected free from its dense attachments to the liver bed. Cystic artery released from final attachments to the anterior edge of the liver. Liver bed was reinspected. Clips noted to be in place in cystic duct and cystic artery stumps. No signs of any active bleeding or bile leakage. It was felt there was no benefit of any drain placement. Gallbladder released from final attachments to the liver, placed in the bag, and pulled up and out the supraumbilical 10-11 mm site. This was closed with puncture closure device with #1 Vicryl under direct vision of camera. Copious amount of irrigation accomplished lateral to the liver and subhepatic space irrigating clear. Liver bed re-inspected. Clips noted to be in place in cystic duct and cystic artery stumps. No signs of any active bleeding or bile leakage. It was felt there was no need for drain placement. The pneumoperitoneum was decompressed. The 11 fascial defect was closed with #1 Vicryl. Skin incision closed with 4-0 Vicryl. Steri-Strips and sterile dressing applied. Marcaine 0.25% local had been injected along each skin incision and fascial defect. The patient tolerated the procedure well. There were no immediate complications. Findings discussed with the family out in the waiting area.
== END 2023-11-02 13:51 | disposition home or self-care (01) ==
LOC: SDC 08:11
PROVIDERS: ATTEND Surgery
DX: K81.1 Chronic cholecystitis (principal); Z87.19 Personal history of other diseases of the digestive system
CPT/HCPCS: J0694; J2250; J2704; J3010